=== PATIENT | female | born 1950 | race Caucasian/White ===

== ENCOUNTER 2023-06-04 15:22 | Inpatient (IN) | payer MEDICARE, OTHER, SELFPAY ==
[2023-06-04 10:24] VITALS: BP 143/81
[2023-06-04 12:07] VITALS: BMI 18.2
[2023-06-04 12:10] VITALS: BP 149/90
--- NOTE | 2023-06-04 12:33 | ED.GENMED ---
History of Present Illness
<Shannan Booker PA-C - Last Filed: 06/04/23 19:04>
General
Chief Complaint: Abdominal Symptoms
Source: patient
Exam Limitations: none
Time Seen by Provider: 06/04/23 12:13
Nursing documentation reviewed up to this point in time: agreed with
Travel History
Have you had any contact with someone who has COVID-19?: No
Do you have any symptoms of coronavirus? Fever > 100 degrees, chills, cough, shortness of breath, sore throat, loss of taste or smell, muscle aches, or headache?: No
History of Present Illness
History of Present Illness:
This is a 73-year-old female with past medical history of lipidemia, incarcerated inguinal hernia presenting to the emergency department today with abdominal pain, nausea, vomiting the past 2 days. She also has associated constipation. She states
that constipation is usually a problem for her however she states that it usually resolves with medication and recently she has not been able to pass stool. She states that during the day she has had episodes of vomiting and is not associated with
any blood. She states that she has no abdominal pain while lying supine but the pain comes on with any movement. She describes the pain as a pressure. She denies chest pain, shortness of breath, diarrhea, back pain, recent abdominal surgeries. She
has never had anything like this before. She denies recent sick contacts, recent travel.
Review of Systems
<Shannan Booker PA-C - Last Filed: 06/04/23 19:04>
Review of Systems
All Other Systems: ROS reviewed and negative except as documented in HPI and ROS
Phy Exam
<Shannan Booker PA-C - Last Filed: 06/04/23 19:04>
Physical Exam
Physical Exam:
General: Patient is well-appearing in no acute distress
Skin: Skin is warm and dry, no rashes or lesions. Capillary refill less than 2 seconds.
Cardiac: Regular rate and rhythm, no murmurs
Pulmonary: Normal respiratory effort
Abdomen: Abdomen is distended, tympanic to percussion. High-pitched bowel sounds. No palpable abdominal masses. No tenderness to palpation.
Neuro: Patient is awake and alert.
Course
<Shannan Booker PA-C - Last Filed: 06/04/23 19:04>
Orders/Labs/Results
Orders:
Orders
06/04/23 Breakfast
NPO
Allow oral meds: No
Allow clear liquids: No
06/04/23 12:41
Iohexol [Omnipaque] See Protocol PO NOW STA
CR Obstruct Series W/pa Chest Urgent
Comment:
Reason For Exam: eval for SBO
06/04/23 12:45
Complete Blood Count/With Diff Urgent
Comprehensive Metabolic Panel Urgent
Lactate Level [Lactic Acid] Urgent
Manual Differential Urgent
Urinalysis Reflex To Culture Urgent
Date Specimen was Collected: 06/04/23
Time Specimen was Collected: 12:43
Urine Microscopic Reflex Cult Urgent
Urine Culture Urgent
GIOVANNY Source: U
Specimen Description:
Date Specimen was Collected: 06/04/23
Time Specimen was Collected: 12:43
06/04/23 13:16
0.9% Sodium Chloride 1000 ml [Nss] 1,000 ml IV BOLUS
Ondansetron Injectable [Zofran] 4 mg IV NOW STA
06/04/23 13:37
NG Tube [GI tube insertion- Treatment] ONCE
06/04/23 13:46
NG Tube [GI tube insertion- Treatment] ONCE
Nursing to Place Non Medication Order As Directed
Physician Order: NG tube to low intermittent suction
Above order entered?: Yes
06/04/23 13:47
Suctioning- Treatment ONCE
06/04/23 13:52
SURGICAL CONSULT Urgent
Consulting Provider: Zia Mercado
Was physician already notified: Yes
06/04/23 14:08
CR Abdomen, Portable - 1 View Urgent
Comment:
Reason For Exam: NG tube insertion chest
06/04/23 14:51
Admit/Transfer Patient As Directed
Co-Sign Provider:
Level of Care: Inpatient admission
Assign to:: Medical/Surgical
Physician / Group: sarabjit meadows
Diagnosis: sbo
Reason for Hospitalization: sbo
Expected length of stay greater than two midnights?: Yes
ELOS- Estimated Length of Stay in days: 3
I certify the patient meets the requirements for IP care: Yes
06/04/23 14:52
Code Status As Directed
Resuscitation Status: Full Code
06/04/23 14:53
EKG [Electrocardiogram (*1)] Stat
Reason for Study: QTc Monitoring
06/04/23 16:15
0.9% Sodium Chloride 1000 ml [Nss] 1,000 ml IV 80 mls/hr
06/04/23 16:15
Activity As Directed
Activity Level: As Tolerated
Vital Signs As Directed
Frequency: Per unit guidelines
DX Deep Vein Thrombosis Video Routine
06/04/23 16:31
Lactic Acid Q6H
06/04/23 18:00
Enoxaparin Sodium [Lovenox] 40 mg SC QPM
06/04/23 19:00
Ondansetron Injectable [Zofran] 4 mg IV Q6HPRN PRN
06/05/23 06:00
Complete Blood Count/No Diff IN AM
Comprehensive Metabolic Panel IN AM
06/06/23 06:00
Complete Blood Count/No Diff IN AM
Comprehensive Metabolic Panel IN AM
06/07/23 06:00
Complete Blood Count/No Diff IN AM
Comprehensive Metabolic Panel IN AM
06/08/23 06:00
Complete Blood Count/No Diff IN AM
Comprehensive Metabolic Panel IN AM
06/09/23 06:00
Complete Blood Count/No Diff IN AM
Comprehensive Metabolic Panel IN AM
Abnormal Lab Results
06/04/23
12:45
WBC 4.5 L 10^3/uL
(4.8-10.8)
Hgb 16.7 H g/dL
(12.0-16.0)
Hct 48.4 H %
(37.0-47.0)
MCH 31.3 H pg
(27.0-31.0)
Segmented Neutrophils 19 L %
(42-75)
Band Neutrophils 27 H %
(0-3)
Monocytes (Manual) 18 H %
(2-9)
Chloride 95 L mmol/L
(98-107)
Carbon Dioxide 33 H mmol/L
(22-30)
BUN 50 H mg/dl
(7-17)
Glucose 167 H mg/dl
(70-99)
Lactic Acid 3.1 H mmol/L
(0.7-2.0)
Calcium 10.3 H mg/dl
(8.4-10.2)
AST 38 H U/L
(14-36)
ALT 56 H U/L
(0-35)
Total Protein 8.4 H g/dl
(6.3-8.2)
Urine Ketones Trace A
(Negative)
Urine Bilirubin 2+ A
(Negative)
Leukocyte Esterase Rfl Trace A
(Negative)
Urine Bacteria (Reflex) Moderate A
(Negative)
Urine Albumin (Reflex) 1+ A
(Neg - Trace)
06/04/23 12:45
06/04/23 12:45
Vital Signs
Initial and Last Documented VS:
Initial Vital Signs
Temp Pulse Resp BP Pulse Ox
98.5 F 84 16 143/81 97
06/04/23 10:24 06/04/23 10:24 06/04/23 10:24 06/04/23 10:24 06/04/23 10:24
Last Documented Vital Signs
Temp Pulse Resp BP Pulse Ox
98.1 F 84 18 145/75 98
06/04/23 16:48 06/04/23 16:48 06/04/23 16:48 06/04/23 16:48 06/04/23 16:48
<Dorian Aragon MD - Last Filed: 06/04/23 13:46>
Orders/Labs/Results
Orders:
Orders
06/04/23 Breakfast
NPO
Allow oral meds: No
Allow clear liquids: No
06/04/23 12:41
Iohexol [Omnipaque] See Protocol PO NOW STA
CR Obstruct Series W/pa Chest Urgent
Comment:
Reason For Exam: eval for SBO
06/04/23 12:45
Complete Blood Count/With Diff Urgent
Comprehensive Metabolic Panel Urgent
Lactate Level [Lactic Acid] Urgent
Manual Differential Urgent
Urinalysis Reflex To Culture Urgent
Date Specimen was Collected: 06/04/23
Time Specimen was Collected: 12:43
Urine Microscopic Reflex Cult Urgent
Urine Culture Urgent
GIOVANNY Source: U
Specimen Description:
Date Specimen was Collected: 06/04/23
Time Specimen was Collected: 12:43
06/04/23 13:16
0.9% Sodium Chloride 1000 ml [Nss] 1,000 ml IV BOLUS
Ondansetron Injectable [Zofran] 4 mg IV NOW STA
06/04/23 13:37
NG Tube [GI tube insertion- Treatment] ONCE
06/04/23 13:46
NG Tube [GI tube insertion- Treatment] ONCE
Nursing to Place Non Medication Order As Directed
Physician Order: NG tube to low intermittent suction
Above order entered?: Yes
06/04/23 13:47
Suctioning- Treatment ONCE
06/04/23 13:52
SURGICAL CONSULT Urgent
Consulting Provider: Zia Mercado
Was physician already notified: Yes
06/04/23 14:08
CR Abdomen, Portable - 1 View Urgent
Comment:
Reason For Exam: NG tube insertion chest
06/04/23 14:51
Admit/Transfer Patient As Directed
Co-Sign Provider:
Level of Care: Inpatient admission
Assign to:: Medical/Surgical
Physician / Group: sarabjit meadows
Diagnosis: sbo
Reason for Hospitalization: sbo
Expected length of stay greater than two midnights?: Yes
ELOS- Estimated Length of Stay in days: 3
I certify the patient meets the requirements for IP care: Yes
06/04/23 14:52
Code Status As Directed
Resuscitation Status: Full Code
06/04/23 14:53
EKG [Electrocardiogram (*1)] Stat
Reason for Study: QTc Monitoring
06/04/23 16:15
0.9% Sodium Chloride 1000 ml [Nss] 1,000 ml IV 80 mls/hr
06/04/23 16:15
Activity As Directed
Activity Level: As Tolerated
Vital Signs As Directed
Frequency: Per unit guidelines
DX Deep Vein Thrombosis Video Routine
06/04/23 16:31
Lactic Acid Q6H
06/04/23 18:00
Enoxaparin Sodium [Lovenox] 40 mg SC QPM
06/04/23 19:00
Ondansetron Injectable [Zofran] 4 mg IV Q6HPRN PRN
06/05/23 06:00
Complete Blood Count/No Diff IN AM
Comprehensive Metabolic Panel IN AM
06/06/23 06:00
Complete Blood Count/No Diff IN AM
Comprehensive Metabolic Panel IN AM
06/07/23 06:00
Complete Blood Count/No Diff IN AM
Comprehensive Metabolic Panel IN AM
06/08/23 06:00
Complete Blood Count/No Diff IN AM
Comprehensive Metabolic Panel IN AM
06/09/23 06:00
Complete Blood Count/No Diff IN AM
Comprehensive Metabolic Panel IN AM
Abnormal Lab Results
06/04/23
12:45
WBC 4.5 L 10^3/uL
(4.8-10.8)
Hgb 16.7 H g/dL
(12.0-16.0)
Hct 48.4 H %
(37.0-47.0)
MCH 31.3 H pg
(27.0-31.0)
Segmented Neutrophils 19 L %
(42-75)
Band Neutrophils 27 H %
(0-3)
Monocytes (Manual) 18 H %
(2-9)
Chloride 95 L mmol/L
(98-107)
Carbon Dioxide 33 H mmol/L
(22-30)
BUN 50 H mg/dl
(7-17)
Glucose 167 H mg/dl
(70-99)
Lactic Acid 3.1 H mmol/L
(0.7-2.0)
Calcium 10.3 H mg/dl
(8.4-10.2)
AST 38 H U/L
(14-36)
ALT 56 H U/L
(0-35)
Total Protein 8.4 H g/dl
(6.3-8.2)
Urine Ketones Trace A
(Negative)
Urine Bilirubin 2+ A
(Negative)
Leukocyte Esterase Rfl Trace A
(Negative)
Urine Bacteria (Reflex) Moderate A
(Negative)
Urine Albumin (Reflex) 1+ A
(Neg - Trace)
06/04/23 12:45
06/04/23 12:45
Vital Signs
Initial and Last Documented VS:
Initial Vital Signs
Temp Pulse Resp BP Pulse Ox
98.5 F 84 16 143/81 97
06/04/23 10:24 06/04/23 10:24 06/04/23 10:24 06/04/23 10:24 06/04/23 10:24
Last Documented Vital Signs
Temp Pulse Resp BP Pulse Ox
98.1 F 84 18 145/75 98
06/04/23 16:48 06/04/23 16:48 06/04/23 16:48 06/04/23 16:48 06/04/23 16:48
<Shannan Booker PA-C - Last Filed: 06/04/23 19:04>
MDM/Problems Addressed
Differential Diagnosis Includes:
Differentials include small bowel obstruction, large bowel obstruction, incarcerated hernia, perforated diverticulitis, perforated PUD, gastroenteritis, constipation
MDM/Problems Addressed:
Abdominal pain, nausea
Chronic conditions affecting care: Previous abdomnial surgery (Previous bowel resection for incarcerated inguinal hernia) and Other (hyperlipidemia)
Acute Exacerbation and/or Progression of Chronic Illness:
n/a
<Shannan Booker PA-C - Last Filed: 06/04/23 19:04>
*Pulse Oximetry
Patient hypoxic: no
*Critical Care Note
Total Time (30-74mins, 75-104mins- exclusive of procedures): Not Applicable
Data Reviewed
Review of Other/Old Records Reveals: Labs (Today, CBC unremarkable, CMP shows elevated BUN; also has elevated lactic acid of 3.1), Records (No previous records to review) and Radiology Studies (Plain radiograph of the abdomen consistent with bowel
obstruction)
Source: patient (Patient reports that she had a past surgery for bowel resection due to incarcerated inguinal)
Prescriptions/Medications Considered But Not Given:
n/a
Further Testing Considered But Not Given:
n/a
<Shannan Booker PA-C - Last Filed: 06/04/23 19:04>
Patient Management
Escalation/DeEscalation of care consider admission/obs:
This is a 73-year-old female with a past medical history of incarcerated inguinal hernia presenting to the emergency department today with abdominal pain, abdominal distention, and persistent vomiting. On exam, her abdomen is distended, she has
high-pitched bowel sounds, she is actively vomiting. Her x-ray of her abdomen revealed a bowel obstruction. We subsequently placed the NG tube for decompression and consulted general surgery. Patient was referred for admission.
ED Attending Note
<Shannan Booker PA-C - Last Filed: 06/04/23 19:04>
-
Portions of this chart may have been created with voice recognition software.� Occasional wrong word or��sound alike� substitutions may have occurred due to the inherent limitations of voice recognition software.
<Dorian Aragon MD - Last Filed: 06/04/23 13:46>
ED Attending Note
Patient seen and examined by attending physician: Yes
ED Attending Note:
HPI: 73-year-old female with a past medical history of hyperlipidemia, prior bowel resection who presents to the emergency room for evaluation of abdominal pain and distention, nausea, vomiting. Patient reports onset of symptoms 2 to 3 days ago and
have been constant and progressive. She reports significant abdominal distention. Has not been able have a bowel movement for the past 2 days. She says she is not passing gas today. She has had nausea and vomiting. She says she does have a
history of prior bowel obstructions although she says pain not as severe as with previous bowel obstruction.
ROS: Positive for abdominal distention, abdominal pain, nausea, vomiting, constipation; negative for fever, chills, chest pain, shortness of breath
Physical exam:
General: Awake, alert; no acute distress
Head: Normocephalic, atraumatic
Eyes: Conjunctiva normal, sclera anicteric
Throat: Airway intact, handling secretions
Neck: Trachea midline, supple without meningismus
Lungs: Clear to auscultation bilaterally, no wheezing, rales, rhonchi
Heart: Regular rate and rhythm, no murmurs, gallops, or rubs
Abd: Soft, distended and tympanic, mild diffuse tenderness
Neuro: No gross deficit
Extremities: Warm well-perfused
Differential diagnosis: Bowel obstruction, volvulus, perforated viscus, constipation
Medical decision makin-year-old female presents for increasing abdominal distention, pain, nausea, vomiting, constipation over the past 2 to 3 days. She has a history of prior bowel resection and prior bowel obstructions. Mildly hypertensive
otherwise normal vitals. Exam as above. Plan to place an IV check labs including CBC and CMP, lactate. Send a urinalysis. Will provide some IV fluids. Antiemetic. Will send for CT of the abdomen pelvis with p.o. and IV contrast; while waiting
for patient to drink for CT will send for obstruction series. Monitor closely reassess after the above.
Chronic conditions affecting care: Prior bowel resection�higher risk for obstruction
Acute exacerbation or progression of chronic illness: Acutely hypertensive likely related to symptoms�no indication for emergent antihypertensive treatment at present
History source: Patient, spouse
Data reviewed: N/A
Medications/testing considered: N/A
Social determinants of health: N/A
Discussion with other providers: See PA note
UPDATE:
X-ray of the abdomen reviewed by me shows signs consistent with a small bowel obstruction. Her labs were reviewed: CBC unremarkable, CMP shows elevated BUN. Her lactate is elevated at 3.1. IV fluids in progress. Will place an NG tube to
decompress stomach. She says pain is minimal nausea and vomiting is her primary complaint. Will change CT to IV contrast only rule out closed-loop obstruction as patient is not tolerating p.o. well and will plan for decompression with NG tube. PA
discussed with hospitalist for admission.
Discharge Plan
Departure
Patient Disposition: Admit
Date of Disposition: 06/04/23
Time of Disposition: 13:52
Admit to doctor: Candace
Presentation/result/management discussed w/ accepting MD/DO: Hospitalist
Discharge Problem:
Small bowel obstruction
Interventions
Interventions:
*Risk Screen - Suicide Last Done: 06/04/23 12:07
*General Assessment Last Done: 06/04/23 12:07
*Neglect/Abuse Screening Last Done: 06/04/23 12:07
ED- Fall Risk Assessment Last Done: 06/04/23 12:07
*ED COVID-19 Vaccine History Last Done: 06/04/23 10:29
*Nursing Disposition Last Done: 06/04/23 16:10
EJ-Xerwre-Ndnwnwoljh Assessment Last Done: 06/04/23 12:07
ED- Cardiac Assessment Last Done: 06/04/23 12:07
ED- Pulmonary Assessment Last Done: 06/04/23 12:07
Discharge Date and Time
Discharge Date/Time: 06/04/23 16:11
[2023-06-04] MEDS: OMNIPAQUE 50 ML PO ×2 (12:48→19:19)
[2023-06-04 13:00] VITALS: BP 139/94
[2023-06-04 13:08] LABS: Urine Albumin 1+ (Neg - Trace); Urine Bilirubin 2+ (Negative); Urine Character Clear (Clear); Urine Color Yellow; Urine Glucose Negative (Negative); Urine Ketone Trace (Negative); Urine Leukocyte Trace (Negative); Urine Nitrite Negative (Negative); Urine Occult Blood Negative (Negative); Urine Specific Gravity 1.025 (<1.030); Urine Urobilinogen 1+ (Neg - 1+)
[2023-06-04 13:15] LABS: Hematocrit 48.4 % (37.0-47.0); Hemoglobin 16.7 g/dL (12.0-16.0); Mean Corp Hgb Conc. 34.5 g/dL (33.0-37.0); Mean Corpuscular Hgb 31.3 pg (27.0-31.0); Mean Corpuscular Volume 90.8 fL (81.0-99.0); Mean Platelet Volume 9.6 fL (7.4-10.4); Platelet Count 325 10^3/uL (130-400); Red Blood Cell Count 5.33 10^6/uL (4.20-5.40); Red Cell Dist. Width 13.4 % (11.5-14.5); White Blood Cell Count 4.5 10^3/uL (4.8-10.8)
[2023-06-04] MEDS: ZOFRAN 4 MG IV ×2 (13:20→19:19)
[2023-06-04] MEDS: NSS 1000 IV ×2 (13:20→16:32)
[2023-06-04 13:26] LABS: Lactic Acid 3.1 mmol/L (0.7-2.0)
[2023-06-04 13:29] LABS: ALT (SGPT) 56 U/L (0-35); AST (SGOT) 38 U/L (14-36); Alkaline Phosphatase 69 U/L (38-126); Blood Urea Nitrogen 50 mg/dl (7-17); Calcium 10.3 mg/dl (8.4-10.2); Carbon Dioxide 33 mmol/L (22-30); Chloride 95 mmol/L (98-107); Estimated Creatinine Clearance 38 ml/min; Glucose 167 mg/dl (70-99); Potassium 4.4 mmol/L (3.5-5.1); Sodium 138 mmol/L (135-145); Total Bilirubin 0.8 mg/dl (0.2-1.3); Total Protein 8.4 g/dl (6.3-8.2); Urine Hyaline Cast >15 /LPF (0-2); Urine Squamous Cell >30 /LPF (Few); eGFR 59.49
[2023-06-04 13:30] LABS: Urine Bacteria Moderate (Negative); Urine Red Blood Cell 0-2 /HPF (0-2)
[2023-06-04 13:55] LABS: Atypical Lymphocytes 2 %; Band Neutrophils 27 % (0-3); Lymphocytes 31 % (20-51); Monocytes 18 % (2-9); Segmented Neutrophils 19 % (42-75)
[2023-06-04 13:56] LABS: Metamyelocytes 3 % (-); Normal RBC Morphology Yes; Platelets Checked Yes; Total Cells Counted 100
--- NOTE | 2023-06-04 14:09 | HPS.HSE ---
Addendum entered and electronically signed by Juan J Maria MD 06/04/23 15:38:
I saw and examined the patient.
The ENTRY LEVEL DRAFTER or PA's note was reviewed and I agree with the note.
Comment:
73 years old female who presented with abdominal pain, constipation, nausea and vomiting. She was found to have small bowel obstruction. NG tube was placed in the emergency room. Her nausea vomiting subsided. Abdominal distention also subsided.
Patient had colonoscopy done few months ago and was unremarkable
Physical Exam
-
General: Well Developed and No Apparent Distress
HEENT: Normocephalic, Atraumatic, Moist Mucous Membranes. Nasogastric tube
Respiratory: Clear to Auscultation
Cardiac: Regular Rhythm and S1/S2; Negative Murmur, Rub or Gallop
GI: Soft, mild tenderness but no guarding.
Rectal: No rectal bleeding noted.
Musculoskeletal: No Clubbing, No Cyanosis and No Edema
Skin: Negative Rash
Neuro: Awake, Alert, Oriented, AO x 3 and Nonfocal/Grossly Intact
Psych: Calm
# Small bowel obstruction, abdominal pain
Likely related to previous surgery. Will order CAT scan of the abdomen and pelvis with IV and oral contrast
N.p.o., GI prophylaxis with IV Protonix
Maintenance IV fluid
IV pain medicine for pain and discomfort
IV antiemetics
Surgery input appreciated
# Lactic acidosis, will trend lactic acid. No fever. No leukocytosis.
Will monitor.
Patient is nontoxic-appearing
# Elevated liver enzymes. Could be related to dehydration. Will monitor
#History of tobacco use
# Underweight. Consistent with patient's body habitus
Total time spent to see the patient, examine the patient on the floor, review data and lab results, discuss treatment plan with patient, ER doctor and nursing staff around 75 minutes
Original Note:
Family Physician
-
Family Physician: Tala Tijerina
Chief Complaint
-
abdominal pain associated with n/v
History of Present Illness
73-year-old female with past medical history of lipidemia, incarcerated inguinal hernia presenting to the emergency department today with abdominal pain, nausea, vomiting the past 2 days. She also has associated constipation. Patient stated gassy
and intermittent Constipation since the colonoscopy in December .she had 2 polyps removed in December. Usually her constipation gets improved with Senokot. For past 2 days, constipation did not improve with Senokot. stated Distention of the
abdomen. Denied fever, chills, chest pain, short of breath. Denied headache, dizziness, syncopal episode. Denied dysuria hematuria.
X-ray with small bowel obstruction. NG tube placed in ER admitting for further management.
Medical History
Past Medical History
Past Medical History: Reports Other
Additional Past Medical History:
Hyperlipidemia
Car serrated hernia
Past Surgical History: Reports Other
Additional Past Surgical History:
Polyps removed
Hernia surgery
Social History
Tobacco: Smoker (5 cigarettes daily)
Alcohol: Occasional
Drug: None
Personal:
Living: With Family
Family History
Family History: Not pertinent
Allergies / Home Medications
Allergies reflects when Allergies were last updated in [facility].
Home Medications with original date entered in [facility]
Allergy/Medication List:
Allergies
Allergy/AdvReac Type Severity Reaction Status Date / Time
hepatitis B virus vaccine Allergy Shortness Verified 06/04/23 10:29
of Breath
Review of Systems
-
Constitutional: Reports No Symptoms
EENT: Reports No Symptoms
Respiratory: Reports No Symptoms
Cardiac: Reports No Symptoms
Abdomen/GI: Reports Abdominal Pain, Nausea, Vomiting and Constipated
: Reports No Symptoms
Musculoskeletal: Reports No Symptoms
Skin: Reports No Symptoms
Neurological: Reports No Symptoms
Endocrine: Reports No Symptoms
Hematologic/Lymphatic: Reports No Symptoms
Psych: Reports No Symptoms
Physical Exam
Vital Signs
Vital Signs
Temp Pulse Resp BP Pulse Ox
98.5 F 77 14 149/90 94
06/04/23 10:24 06/04/23 12:15 06/04/23 12:15 06/04/23 12:10 06/04/23 12:15
Physical Exam
General: Well Developed, Well Nourished and No Apparent Distress
HEENT: NormoCephalic, Moist mucous membranes and Atraumatic
Respiratory: Clear
Cardiac: S1/S2 and Regular Rhythm; No Murmur or Rub
GI: Tender and Distended; No Organomegaly
Rectal: Deferred by Provider
Musculoskeletal: No Clubbing, No Cyanosis and No Edema
Skin: No Rash
Neuro: AO x 3 and Nonfocal/grossly intact
Psych: Calm
Laboratory Results
-
06/04/23 12:45
06/04/23 12:45
Laboratory Results
Lactic Acid 3.1 mmol/L (0.7-2.0) H 06/04/23 12:45
Total Bilirubin 0.8 mg/dl (0.2-1.3) 06/04/23 12:45
AST 38 U/L (14-36) H 06/04/23 12:45
ALT 56 U/L (0-35) H 06/04/23 12:45
Alkaline Phosphatase 69 U/L (38-126) 06/04/23 12:45
Data Reviewed
-
Lab Data: Labs Reviewed by me
Impression/Plan
-
#small bowel obstruction
-NG tube
-strict NPO
-fluids continued for hydration
-GI consulted
#elevated lactic acid from SBO
-lactic 3.1,wbc 4.5, afebrile
-ua negative
-Trend lactic
#elevated transaminase likely dehydration
-ast 38,alt 56
-normal saline continued
-trend LFT
#hld
-hold statin
#DVT prophylaxis
-Lovenox
#CODE status
-full code
[2023-06-04 14:18] VITALS: BP 147/84
--- NOTE | 2023-06-04 15:35 | CON.GS ---
Medical History
-
Chief Complaint: Abdominal pain, distension, N/V
History of Present Illness:
Patient is a 73 yo F with a PMH notable for HLD, s/p open RIGHT inguinal hernia repair with SBR in the and s/p open LEFT inguinal hernia repair years later. She presents to the emergency room with worsening abdominal pain and distention with
associated nausea and vomiting over the past 5 to 6 days. Upon further prompting Ms. Phan states that she has been having issues with crampy abdominal pain and progressive distention over the past several months. She has had intermittent
issues with constipation which she has been managing with OTC oral stool softeners. She states that her last bowel movement and flatus was approximately 2 days ago. No report of high-fiber foods or sick contacts. No fevers or chills. No bloody
or mucousy stools. Her last colonoscopy was in 12/2022 and notable for small polyps removed (no report or Pathology available).
Past Medical History
Past Medical History: Hypercholesterolemia
Past Surgical History: Hernia Repair (S/p open RIGHT inguinal hernia repair with SBR in the , S/p open LEFT inguinal hernia repair years later)
Social History
Tobacco: Non-Smoker
Alcohol: None
Drug: None
Personal:
Living: With Family
Family History
Family History: Reviewed & Noncontributory
Allergies / Home Medications
Allergy/AdvReac Type Severity Reaction Status Date / Time
hepatitis B virus vaccine Allergy Shortness Verified 06/04/23 10:29
of Breath
Medication Instructions Recorded Confirmed Type
Uunnivs-Z3-Pvdyalvtp-Zinc 1 tab PO Q48H 06/04/23 06/04/23 History
Dqhhcou-V8-Dizzapjfk-Zinc 2 tab PO Q48H 06/04/23 06/04/23 History
alendronate 70 mg tablet 70 mg PO DALY@0800 06/04/23 06/04/23 History
atorvastatin 20 mg tablet 20 mg PO QPM 06/04/23 06/04/23 History
ibuprofen 200 mg tablet (Motrin IB) 400 mg PO DAILYPRN PRN mild pain 06/04/23 06/04/23 History
sennosides 8.6 mg tablet (Senokot) 8.6 mg PO DAILY PRN constipation 06/04/23 06/04/23 History
Review of Systems
-
A 10 point review of systems was completed, and was negative except as per HPI.
Physical Exam
Vital Signs
Temp Pulse Resp BP Pulse Ox
98.5 F 75 15 147/84 96
06/04/23 10:24 06/04/23 14:30 06/04/23 14:30 06/04/23 14:18 06/04/23 14:30
06/03/23 06/04/23 06/05/23
06:59 06:59 06:59
Actual Weight 48 kg
Body Mass Index (BMI) 18.2
Lab Results
06/04/23 12:45
06/04/23 12:45
WBC 4.5 10^3/uL (4.8-10.8) L 06/04/23 12:45
Hgb 16.7 g/dL (12.0-16.0) H 06/04/23 12:45
Hct 48.4 % (37.0-47.0) H 06/04/23 12:45
Plt Count 325 10^3/uL (130-400) 06/04/23 12:45
Physical Exam
General: Well Developed, Well Nourished and No Apparent Distress
HEENT: Normocephalic and Anicteric
Respiratory: Non Labored Respirations
Cardiac: Regular Rhythm
GI: Soft, Tender (Moderate mostly central), Distended (Tympanitic), Incisions (Groin incisions well healed) and Other (Non-peritoneal (no rebound or guarding), no hernia appreciated on exam)
Musculoskeletal: No Edema
Skin: Warm and Dry
Neuro: Nonfocal/Grossly Intact
Data Reviewed
-
Radiology: Image Personally Visualized and interpreted and Report Reviewed by me
Labs: Labs Reviewed by me
Assessment / Plan
-
Patient is a 73 yo F p/w SBO; acute on chronic over the past several months
The natural history and pathophysiology of bowel obstruction was reviewed. Most likely adhesive given her prior emergent hernia repair with SBR. No recurrent hernia appreciated on exam. Less likely a malignant process. Afebrile and
hemodynamically stable. Labs notable for significantly elevated hemoglobin and mildly elevated lactate. Most likely indicative of dehydration. Recommended plan for a CT scan with oral and IV contrast. Given the degree of small bowel distention
on plain film we will plan for a period of a few hours for decompression prior to administering oral contrast. Repeat abdominal x-ray in the AM. No indication or plan for surgical intervention at this time, recommend initial trial of medical
management with NPO, IVF, and NG decompression. All questions answered.
-- NPO, IVF, NGT decompression
-- CT with PO and IV contrast, repeat X-ray in AM pending results
-- No plans for surgical intervention at this time
[2023-06-04] MEDS: NSS (PRESERVATIVE FREE) 10 ML IV (16:33)
[2023-06-04] MEDS: PROTONIX IV 40 MG IV (16:33)
[2023-06-04 16:48] VITALS: BP 145/75
[2023-06-04 16:49] VITALS: BMI 18.4
[2023-06-04 16:49] LABS: Lactic Acid 1.6 mmol/L (0.7-2.0)
[2023-06-04] MEDS: LOVENOX 40 MG SC (19:19)
[2023-06-04] MEDS: COMPAZINE 10 MG IV (20:56)
--- NOTE | 2023-06-04 22:06 | PTCARENOTE ---
Pt taken to CT after drinking the oral contrast. Pt was able to tolerate procedure.
[2023-06-04 23:34] VITALS: BP 150/80
[2023-06-05] MEDS: NSS 1000 IV ×2 (05:21→22:07)
[2023-06-05] MEDS: NSS (PRESERVATIVE FREE) 10 ML IV (07:35)
[2023-06-05] MEDS: PROTONIX IV 40 MG IV (07:35)
[2023-06-05 07:49] VITALS: BP 155/88
[2023-06-05 08:18] LABS: Hemoglobin 16.4 g/dL (12.0-16.0); Mean Corp Hgb Conc. 34.9 g/dL (33.0-37.0); Mean Corpuscular Hgb 31.4 pg (27.0-31.0); Mean Corpuscular Volume 89.9 fL (81.0-99.0); Mean Platelet Volume 9.8 fL (7.4-10.4); Platelet Count 307 10^3/uL (130-400); Red Blood Cell Count 5.23 10^6/uL (4.20-5.40); Red Cell Dist. Width 13.2 % (11.5-14.5); White Blood Cell Count 5.9 10^3/uL (4.8-10.8)
[2023-06-05 09:24] LABS: ALT (SGPT) 20 U/L (0-35); AST (SGOT) 29 U/L (14-36); Albumin 4.7 g/dl (3.5-5.0); Alkaline Phosphatase 74 U/L (38-126); Blood Urea Nitrogen 61 mg/dl (7-17); Calcium 9.4 mg/dl (8.4-10.2); Carbon Dioxide 35 mmol/L (22-30); Chloride 92 mmol/L (98-107); Estimated Creatinine Clearance 31 ml/min; Glucose 152 mg/dl (70-99); Potassium 4.1 mmol/L (3.5-5.1); Sodium 137 mmol/L (135-145); Total Bilirubin 0.8 mg/dl (0.2-1.3); Total Protein 7.8 g/dl (6.3-8.2)
--- NOTE | 2023-06-05 10:02 | W.PN.GS2 ---
Today's Communication / Plan
-
Clamp trials
Assessment / Plan
-
73F with pSBO, resolving
AFVSS, ambulating, passing liquid stool/flatus this am, about 2L into NGT since midnight; soft reducible nt RIH
Mild leukopenia resolved
Cr 1 --> 1.2
CT with diffusely dilated sb loops without clear transition point, some bowel/colon in right inguinal hernia without signs of threat or compromise, colon is decompressed
F/U KUB slightly improved dilation of sb, no significant visible contrast, possibly some in at the splenic flexure
Plan:
Initiate clamp trials --> start sips/chips for today if she does well
NPO/IVF
Ambulate
DVT ppx
PRN pain meds/antiemetics
No plans for surgical intervention at this time, will follow
Subjective Data
-
Date of Service: June 05, 2023
AFVSS, pain improved, denies nausea, with NT to suction, ambulating, passing liquid stool and flatus this am
Objective Data
-
Intake and Output
06/04/23 06/05/23 06/06/23
06:59 06:59 06:59
Intake Total 850 / 850
Output Total 1750 / 1750
Balance -900 / -900
Intake:
IV fluids (Total) 850 / 850
Output:
Gastrointestinal tube output ( 1750 / 1750
Total)
[place] Sump 1750 / 1750
Vital Signs
Temp Pulse Resp BP Pulse Ox
97.9 F 73 16 155/88 92
06/05/23 07:49 06/05/23 07:49 06/05/23 07:49 06/05/23 07:49 06/05/23 07:49
Lab Results
06/05/23 07:48
06/05/23 07:48
Calcium 9.4 mg/dl (8.4-10.2) 06/05/23 07:48
Total Bilirubin 0.8 mg/dl (0.2-1.3) 06/05/23 07:48
AST 29 U/L (14-36) 06/05/23 07:48
ALT 20 U/L (0-35) 06/05/23 07:48
Alkaline Phosphatase 74 U/L (38-126) 06/05/23 07:48
Total Protein 7.8 g/dl (6.3-8.2) 06/05/23 07:48
Albumin 4.7 g/dl (3.5-5.0) 06/05/23 07:48
Physical Exam
-
Gen: NAD
Abd: soft, moderate distention, nt
Right groin: soft reducible nt inguinal hernia
--- NOTE | 2023-06-05 10:16 | W.PN.HOSP.TC ---
Today's Communication/Plan
-
.
Assessment / Plan
Assessment / Plan
Physical Exam
General: Well Developed and No Apparent Distress
HEENT: Normocephalic, Atraumatic, Moist Mucous Membranes.� Nasogastric tube
Respiratory: Clear to Auscultation
Cardiac: Regular Rhythm and S1/S2; Negative Murmur, Rub or Gallop
GI: Soft, mild tenderness but no guarding.
Rectal: No rectal bleeding noted.
Musculoskeletal: No Clubbing, No Cyanosis and No Edema
Skin: Negative Rash
Neuro: Awake, Alert, Oriented, AO x 3 and Nonfocal/Grossly Intact
Psych: Calm
# Small bowel obstruction, abdominal pain
Likely related to previous surgery/ adhesion
Seems to do better with passing gas and liquid stool
CAT scan of the abdomen and pelvis with IV and oral contrast showed clear transition point
N.p.o., GI prophylaxis with IV Protonix
Maintenance IV fluid, clamping trial of NG today
IV pain medicine for pain and discomfort
IV antiemetics
Surgery input appreciated
# Lactic acidosis, resolved. � No fever.� No leukocytosis.
Patient is nontoxic-appearing
# Acute kidney injury
likely pre-renal although pt received iV dye yesterday
c/w IVF
Monitor for retention
# Elevated liver enzymes.� Resolved. Likely related to dehydration.�
#History of tobacco use
# Underweight.� Consistent with patient's body habitus
Total time spent to see the patient, examine the patient on the floor, review data and lab results, discuss treatment plan with patient, and nursing staff around 55 minutes
Anticipated Discharge: 24 - 48 hours
Subjective/Interval History
-
Date of Service: June 05, 2023
Passing gas
less abd pain
no nausea
Objective Data
-
Labs:
Laboratory Results
06/05/23
07:48
WBC 5.9
Hgb 16.4 H
Hct 47.0
Plt Count 307
Sodium 137
Potassium 4.1
Chloride 92 L
Carbon Dioxide 35 H
BUN 61 H
Creatinine 1.2 H
Glucose 152 H
Calcium 9.4
Total Bilirubin 0.8
AST 29
ALT 20
Alkaline Phosphatase 74
Vital Signs:
Vital Signs
Temp Pulse Resp BP Pulse Ox
97.9 F 73 16 155/88 92
06/05/23 07:49 06/05/23 07:49 06/05/23 07:49 06/05/23 07:49 06/05/23 07:49
I&O
06/04/23 06/05/23 06/06/23
06:59 06:59 06:59
Intake Total 850 / 850
Output Total 1750 / 1750
Balance -900 / -900
[2023-06-05 15:00] VITALS: BP 143/80
--- NOTE | 2023-06-05 16:16 | PTCARENOTE ---
Resumed low int suction at 1500. 75mls drained, pt not complaining of nausea. [address] dc'd. Pt NPO with sips/chips.
--- NOTE | 2023-06-05 17:27 | CM ---
CM following re: d/c planning
Chart reviewed
CM met with the patient at bedside; IA completed
Pt states she and her spouse [place] [facility] with [facility]
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
Pt has no previous hx of VN/SNF however does have a r/w & pair of crutches for use as needed
Pt does have prescription coverage and rx's are filled at [facility] on [facility]
Pt PCP-Tala Tijerina
No needs are anticipated once stable for d/c
CM will continue to monitor patient and assist with any needs at d/c as indicated
PLAN; d/c home no needs anticipated
[2023-06-05] MEDS: LOVENOX 40 MG SC (18:05)
[2023-06-05 23:00] VITALS: BP 141/74
[2023-06-06 03:00] VITALS: BP 148/73
[2023-06-06 06:19] VITALS: BMI 18.0
[2023-06-06 06:23] LABS: Hematocrit 44.9 % (37.0-47.0); Hemoglobin 15.7 g/dL (12.0-16.0); Mean Corpuscular Hgb 31.5 pg (27.0-31.0); Mean Platelet Volume 9.8 fL (7.4-10.4); Platelet Count 274 10^3/uL (130-400); Red Blood Cell Count 4.99 10^6/uL (4.20-5.40); Red Cell Dist. Width 13.2 % (11.5-14.5); White Blood Cell Count 5.3 10^3/uL (4.8-10.8)
[2023-06-06] MEDS: ZOFRAN 4 MG IV (06:29)
[2023-06-06 06:49] LABS: ALT (SGPT) 17 U/L (0-35); AST (SGOT) 27 U/L (14-36); Albumin 4.3 g/dl (3.5-5.0); Alkaline Phosphatase 66 U/L (38-126); Blood Urea Nitrogen 55 mg/dl (7-17); Calcium 8.3 mg/dl (8.4-10.2); Carbon Dioxide 35 mmol/L (22-30); Chloride 96 mmol/L (98-107); Estimated Creatinine Clearance 46 ml/min; Glucose 119 mg/dl (70-99); Potassium 3.6 mmol/L (3.5-5.1); Sodium 138 mmol/L (135-145); Total Bilirubin 0.8 mg/dl (0.2-1.3); Total Protein 7.1 g/dl (6.3-8.2); eGFR > 60.00
[2023-06-06 07:35] VITALS: BP 150/83
[2023-06-06] MEDS: NSS 1000 IV ×2 (09:02→18:21)
[2023-06-06] MEDS: PROTONIX IV 40 MG IV (09:04)
[2023-06-06] MEDS: NSS (PRESERVATIVE FREE) 10 ML IV (09:05)
--- NOTE | 2023-06-06 09:21 | W.PN.HOSP.TC ---
Today's Communication/Plan
-
.
Assessment / Plan
Assessment / Plan
Physical Exam
General: Well Developed and No Apparent Distress
HEENT: Normocephalic, Atraumatic, Moist Mucous Membranes.� Nasogastric tube
Respiratory: Clear to Auscultation
Cardiac: Regular Rhythm and S1/S2; Negative Murmur, Rub or Gallop
GI: Soft, mild tenderness but no guarding.
Rectal: No rectal bleeding noted.
Musculoskeletal: No Clubbing, No Cyanosis and No Edema
Skin: Negative Rash
Neuro: Awake, Alert, Oriented, AO x 3 and Nonfocal/Grossly Intact
Psych: Calm
# Small bowel obstruction, abdominal pain
Likely related to previous surgery/ adhesion
NG was removed yesterday but she seems to have nausea. Abd is distended, abd tenderness. Keep strict NG
will d/w surgery
CAT scan of the abdomen and pelvis with IV and oral contrast showed clear transition point
IV pain medicine for pain and discomfort
IV antiemetics
Surgery input appreciated
# Lactic acidosis, resolved. � No fever.� No leukocytosis.
Patient is nontoxic-appearing
# Acute kidney injury
Creatinine is down to 0.8
KERRIE was pre-renal.
c/w IVF
Monitor for retention
# Elevated liver enzymes.� Resolved. Likely related to dehydration.�
#History of tobacco use
# Underweight.� Consistent with patient's body habitus
Total time spent to see the patient, examine the patient on the floor, review data and lab results, discuss treatment plan with patient, and nursing staff around 57 minutes
Anticipated Discharge: > 48 hours
Subjective/Interval History
-
Date of Service: June 06, 2023
Nausea with abd distension
+ abd discomfort
Objective Data
-
Labs:
Laboratory Results
06/06/23
05:58
WBC 5.3
Hgb 15.7
Hct 44.9
Plt Count 274
Sodium 138
Potassium 3.6
Chloride 96 L
Carbon Dioxide 35 H
BUN 55 H
Creatinine 0.8
Glucose 119 H
Calcium 8.3 L
Total Bilirubin 0.8
AST 27
ALT 17
Alkaline Phosphatase 66
Vital Signs:
Vital Signs
Temp Pulse Resp BP Pulse Ox
98.2 F 82 18 150/83 96
06/06/23 07:35 06/06/23 07:35 06/06/23 07:35 06/06/23 07:35 06/06/23 07:35
I&O
06/05/23 06/06/23 06/07/23
06:59 06:59 06:59
Intake Total 850 / 850
Output Total 1750 / 1750
Balance -900 / -900
--- NOTE | 2023-06-06 09:26 | W.PN.GS2 ---
Addendum entered and electronically signed by Eran Beasley MD 06/06/23 11:07:
persistent dilated SB loops highly suggestive of persistent high grade obstruction
requested nursing to replace NGT for decompression
Original Note:
Today's Communication / Plan
-
`
Assessment / Plan
-
Assessment: 73F with SBO
AFVSS but return of obstructive symptoms rather promptly after NGT removal. no flatus or BMs
Plan: check abdominal xray - if persistent SB/gastric distention then will need to replace NGT for decompression
NPO, IVF hydration, supportive care
if no clinical improvement over next 24hrs probable OR
Subjective Data
-
Date of Service: June 06, 2023
pt seen and examined
feeling worse again after NGT removed
overnight distention returned and mild nausea, no appetite
no flatus/no BM
Objective Data
-
Intake and Output
06/05/23 06/06/23 06/07/23
06:59 06:59 06:59
Intake Total 850 / 850
Output Total 1750 / 1750
Balance -900 / -900
Intake:
IV fluids (Total) 850 / 850
Output:
Gastrointestinal tube output ( 1750 / 1750
Total)
[place] Sump 1750 / 1750
Other:
Number of approximated MODERATE 3
amounts of urine
Vital Signs
Temp Pulse Resp BP Pulse Ox
98.2 F 82 18 150/83 96
06/06/23 07:35 06/06/23 07:35 06/06/23 07:35 06/06/23 07:35 06/06/23 07:35
Lab Results
06/06/23 05:58
06/06/23 05:58
Calcium 8.3 mg/dl (8.4-10.2) L 06/06/23 05:58
Total Bilirubin 0.8 mg/dl (0.2-1.3) 06/06/23 05:58
AST 27 U/L (14-36) 06/06/23 05:58
ALT 17 U/L (0-35) 06/06/23 05:58
Alkaline Phosphatase 66 U/L (38-126) 06/06/23 05:58
Total Protein 7.1 g/dl (6.3-8.2) 06/06/23 05:58
Albumin 4.3 g/dl (3.5-5.0) 06/06/23 05:58
Physical Exam
-
NAD AAOx3
ABD: distended, tympanitic, nontender
--- NOTE | 2023-06-06 12:18 | PN.CDI ---
Addendum entered and electronically signed by Juan J Maria MD 06/06/23 13:50:
Assessment shows KERRIE
please text me to clarify
Original Note:
CDI
- -
CDI:
Physician Documentation Request
Admit Date: 06/04/23 15:22
Dear Doctor,
Please review the following and provide your response in the progress notes.
Clinical Indicators:
PN, 2/
# Acute kidney injury
#Creatinine is down to 0.8
#KERRIE was pre-renal.
#c/w IVF
Laboratory Tests
06/04/23 06/05/23 06/06/23
12:45 07:48 05:58
Creatinine 1.0 1.2 H 0.8
Based on the above information and the clinical indicators in the record, please clarify in the Progress Notes which of the following most accurately represents the patient's renal status:
Acute kidney injury with no underlying CKD
KERRIE is likely, suspected, probable diagnosis
KERRIE is ruled out
Other
Criteria for KERRIE*
1 Increase in serum creatinine by > or = to 0.3 mg/dL (> or = to 26.5 micromol/L) within 48 hours, OR
2 Increase in serum creatinine to > or = to 1.5 times baseline, which is known or presumed to have occurred within 7 days, OR
3 Urine volume < 0.5 nL/kg/hour for six hours
Use of terms such as suspected, likely, concern for, or probable (associated with a specific diagnosis that is being evaluated, monitored, or treated as if it exists) are acceptable and can be coded in the inpatient setting, when documented at the
time of discharge.
Thank you,
Belinda Gonsalez RN BSN CCDS
CDI Specialist
please contact via tiger text
Please use your independent medical judgment in providing your response.
*Source: Kidney Disease: Improving Global Outcomes (KDIGO) 2012
[2023-06-06 15:47] VITALS: BP 142/67
--- NOTE | 2023-06-06 16:57 | W.PN.SURGUPD ---
Surgical Update
Surgical Update
Patient seen in follow-up this afternoon/evening.
Appreciate nursing assistance with NG tube placement earlier.
Patient feeling better. Abdominal distention has again begun to subside. No abdominal pain or discomfort.
NG tube in place with 1500 mL or even more of feculent fluid in canister
Abdominal examination much softer, nontender, no rebound or guarding.
Advised patient of anticipated need for surgical intervention tomorrow
She has been added onto the OR schedule, 06/07/2023, for a persistent high-grade small bowel obstruction
Diagnostic laparoscopy, possible laparotomy, lysis of adhesions, possible bowel resection was reviewed in detail with the patient. Based on imaging and prior history point of obstruction appears to be twist in the immediate vicinity of the prior
small bowel resection when she had secondary to a strangulated inguinal hernia. We discussed alternative treatment options, benefits and potential risks of the operative procedure including but not limited to bleeding, infectious or wound related
complications, iatrogenic injury to surrounding viscera, anastomotic related complications. We discussed typical postoperative recovery hospital care while awaiting postoperative GI recovery/return of GI function after surgery.
Any of the patient's concerns or questions were fully addressed.
Continue NG tube decompression
Continue IV fluid hydration
Repeat labs in a.m.
--- NOTE | 2023-06-06 17:19 | PTCARENOTE ---
Received patient this am AAOx3. Pt with intermittent nausea and abdominal tenderness. Abdominal assessment-distended, firm and round. No bowel sounds. Pt unable to have a bowel movement. Dr. Beasley saw patient. Abdominal Xray ordered. NGT tube
placed at 1230 pm as ordered. Brown drainage. Pt made comfortable. Cont to assess patient status.
[2023-06-06] MEDS: LOVENOX 40 MG SC (18:20)
[2023-06-06 22:51] VITALS: BP 148/73
[2023-06-07] VITALS (14 sets, daily range): BP systolic 129–153; BP diastolic 70–84; BMI 18.0
[2023-06-07] MEDS: NSS 1000 IV ×3 (03:37→17:43)
[2023-06-07 08:15] LABS: Hemoglobin 14.8 g/dL (12.0-16.0); Mean Corp Hgb Conc. 34.4 g/dL (33.0-37.0); Mean Corpuscular Hgb 31.6 pg (27.0-31.0); Mean Corpuscular Volume 91.7 fL (81.0-99.0); Platelet Count 267 10^3/uL (130-400); Red Blood Cell Count 4.69 10^6/uL (4.20-5.40); Red Cell Dist. Width 13.1 % (11.5-14.5); White Blood Cell Count 4.3 10^3/uL (4.8-10.8)
[2023-06-07 08:42] LABS: ALT (SGPT) 14 U/L (0-35); AST (SGOT) 22 U/L (14-36); Albumin 3.7 g/dl (3.5-5.0); Alkaline Phosphatase 55 U/L (38-126); Blood Urea Nitrogen 50 mg/dl (7-17); Calcium 8.3 mg/dl (8.4-10.2); Carbon Dioxide 28 mmol/L (22-30); Chloride 102 mmol/L (98-107); Estimated Creatinine Clearance 52 ml/min; Glucose 104 mg/dl (70-99); Potassium 3.3 mmol/L (3.5-5.1); Sodium 144 mmol/L (135-145); Total Bilirubin 0.7 mg/dl (0.2-1.3); Total Protein 6.1 g/dl (6.3-8.2); eGFR > 60.00
[2023-06-07] MEDS: NSS (PRESERVATIVE FREE) 10 ML IV (09:16)
[2023-06-07] MEDS: PROTONIX IV 40 MG IV (09:16)
--- NOTE | 2023-06-07 09:36 | W.PN.HOSP.TC ---
Today's Communication/Plan
-
.
Assessment / Plan
Assessment / Plan
Physical Exam
General: Well Developed and No Apparent Distress
HEENT: Normocephalic, Atraumatic, Moist Mucous Membranes.� Nasogastric tube
Respiratory: Clear to Auscultation
Cardiac: Regular Rhythm and S1/S2; Negative Murmur, Rub or Gallop
GI: Soft, mild tenderness but no guarding.
Rectal: No rectal bleeding noted.
Musculoskeletal: No Clubbing, No Cyanosis and No Edema
Skin: Negative Rash
Neuro: Awake, Alert, Oriented, AO x 3 and Nonfocal/Grossly Intact
Psych: Calm
# Small bowel obstruction, abdominal pain
She feels better after placing NG back on 06/06. Likely to OR today
SBO thought to be related to previous surgery/ adhesion
c/w supportive care
CAT scan of the abdomen and pelvis with IV and oral contrast showed clear transition point
IV pain medicine for pain and discomfort
IV antiemetics
Surgery input appreciated
# Hypokalemia
replace with IV KCl
# Lactic acidosis, resolved. � No fever.� No leukocytosis.
Patient is nontoxic-appearing
# Acute kidney injury due to pre-renal etiology. Creatinine down to 0.7
Creatinine is down to 0.8
KERRIE was pre-renal.
c/w IVF
Monitor for retention
# Elevated liver enzymes.� Resolved. Likely related to dehydration.�
#History of tobacco use
# Underweight.� Consistent with patient's body habitus
Total time spent to see the patient, examine the patient on the floor, review data and lab results, discuss treatment plan with patient, and nursing staff around 57 minutes
Anticipated Discharge: > 48 hours
Subjective/Interval History
-
Date of Service: June 07, 2023
She feels better after NG placement
No chest pain
No sob
No fevers
Objective Data
-
Labs:
Laboratory Results
06/07/23
07:15
WBC 4.3 L
Hgb 14.8
Hct 43.0
Plt Count 267
Sodium 144
Potassium 3.3 L
Chloride 102
Carbon Dioxide 28
BUN 50 H
Creatinine 0.7
Glucose 104 H
Calcium 8.3 L
Total Bilirubin 0.7
AST 22
ALT 14
Alkaline Phosphatase 55
Vital Signs:
Vital Signs
Temp Pulse Resp BP Pulse Ox
97.7 F 74 16 147/79 97
06/07/23 07:41 06/07/23 07:41 06/07/23 07:41 06/07/23 07:41 06/07/23 07:41
I&O
06/06/23 06/07/23 06/08/23
06:59 06:59 06:59
Intake Total 1330 / 1330
Output Total 2300 / 2300
Balance -970 / -970
[2023-06-07] MEDS: KCL 270 MEQ IV (10:15)
--- NOTE | 2023-06-07 11:48 | W.PN.SURGUPD ---
Surgical Update
Surgical Update
Patient seen in follow-up. Family members at bedside.
Improving with NG tube decompression but still feels distended/bloated compared to baseline
Not passing much flatus but had a moderate/small semiformed/loose bowel movement this morning. NG canister still remains feculent and was over 1200 mL and output overnight.
Advised patient and her family members I suspect she still has a high-grade partial small bowel obstruction.
Given some signs of GI recovery we discussed treatment options including continue with proceeding with diagnostic laparoscopy, lysis of adhesions, possible bowel resection possible laparotomy pending operative findings or doing further radiographic
studies with a small bowel follow-through contrast study.
Given that we have had to reinsert the NG tube yesterday I suspect that small bowel series would still show a fairly high-grade partial small bowel obstruction.
After discussions of treatment options patient wishes to continue with plan for surgical intervention as we had already scheduled for today.
[2023-06-07] MEDS: NSS IV (11:54)
--- NOTE | 2023-06-07 13:23 | W.SUR.PREOP ---
Pre-Operative Surgical Note
-
I have examined this patient prior to the performance of the scheduled procedure.
The patient's condition is unchanged from the time of the current History and
Physical and the patient is able to undergo the scheduled procedure.
[2023-06-07] MEDS: INVANZ 1000 MG IM (14:30)
--- NOTE | 2023-06-07 16:27 | W.IMMPOSTOP ---
Addendum entered and electronically signed by Eran Beasley MD 06/07/23 16:53:
#[id number]
Original Note:
Surgical Immed Post Op Note
-
Primary Surgeon: Ramos
Assisting Surgeon: Armani JAMES
Pre-op Diagnosis: SBO
Post-op Diagnosis: high grade pSBO
Procedure Performed: Laparoscopic converted to open lysis of adhesions/enterolysis, repair of enterotomy
Anesthesia Type: GETA + 0.25% Marcaine
Specimen / Cultures: none
Estimated Blood Loss: 12mL
Complications: none immediate
Operative Findings: adhesions to lower midline abdominal wall and to prior small bowel anastomosis. lap lysis of abd wall SB adhesions -> conversion to lower midline laparotomy for enterolysis around SB anastomosis. small enterotomy in upstream
SB d/t severe dilation/thinning of wall d/t obstruction at laparoscopic grasper site. closed primarily with 2 layer closure. NGT position confirmed.
Plan: routine post op care, NGT until signs of GI recovery
updated post op in waiting area
--- NOTE | 2023-06-07 17:37 | PTCARENOTE ---
1g Ertapenem received intra OPat 1430 by anesthesia
--- NOTE | 2023-06-07 18:18 | PTCARENOTE ---
Patient arrived to 2S in bed. Full assessment completed. Abdominal incisions C/D/I glued and open to air. NG tube to low intermittent suction. Hinojosa catheter clean and intact, draining yellow urine. IV fluids initiated. Bed locked and in lowest
position, safety maintained. Oriented to room and call cote, spouse at bed side.
[2023-06-07] MEDS: LOVENOX 40 MG SC (18:33)
[2023-06-07] MEDS: DILAUDID 0.5 MG IV (19:41)
[2023-06-07] MEDS: OFIRMEV 100 IV (23:21)
[2023-06-08 02:21] VITALS: BMI 18.0
[2023-06-08] MEDS: NSS 1000 IV (02:35)
[2023-06-08 03:30] VITALS: BP 153/82
[2023-06-08] MEDS: OFIRMEV 100 IV ×2 (06:03→19:30)
[2023-06-08 06:07] LABS: Hemoglobin 15.9 g/dL (12.0-16.0); Mean Corp Hgb Conc. 33.1 g/dL (33.0-37.0); Mean Corpuscular Hgb 31.5 pg (27.0-31.0); Mean Corpuscular Volume 95.2 fL (81.0-99.0); Mean Platelet Volume 9.9 fL (7.4-10.4); Platelet Count 250 10^3/uL (130-400); Red Blood Cell Count 5.04 10^6/uL (4.20-5.40); Red Cell Dist. Width 13.2 % (11.5-14.5); White Blood Cell Count 17.7 10^3/uL (4.8-10.8)
[2023-06-08 06:43] LABS: ALT (SGPT) 13 U/L (0-35); AST (SGOT) 26 U/L (14-36); Albumin 2.7 g/dl (3.5-5.0); Alkaline Phosphatase 51 U/L (38-126); Blood Urea Nitrogen 38 mg/dl (7-17); Calcium 7.3 mg/dl (8.4-10.2); Carbon Dioxide 23 mmol/L (22-30); Chloride 110 mmol/L (98-107); Estimated Creatinine Clearance 46 ml/min; Glucose 82 mg/dl (70-99); Potassium 3.3 mmol/L (3.5-5.1); Sodium 146 mmol/L (135-145); Total Bilirubin 0.6 mg/dl (0.2-1.3); eGFR > 60.00
[2023-06-08 07:20] VITALS: BP 124/67
[2023-06-08] MEDS: D5/0.45%NSS with KCL 40 MEQ 1000 IV ×2 (08:45→19:29)
[2023-06-08] MEDS: PROTONIX IV 40 MG IV (08:48)
[2023-06-08] MEDS: NSS (PRESERVATIVE FREE) 10 ML IV (08:48)
[2023-06-08 12:01] VITALS: BP 125/74
--- NOTE | 2023-06-08 12:05 | W.PN.GS2 ---
Addendum entered and electronically signed by Abraham Evangelista MD 06/08/23 12:18:
I saw and examined the patient.
The Utility Aide's note was reviewed and I agree with the note.
Comment: Doing well POD1. No bowel function yet. Denies n/v with NGT to suction. Will cont NPO/IVF/NGT for now pending ROBF.
Original Note:
Today's Communication / Plan
-
Continue NPO with NGT to LIWS
Assessment / Plan
-
Assessment: 73F with high grade SBO who is now POD #1 Ex lap converted to open for JENNIFER/enterolysis and repair of enterotomy
AFVSS
Leukocytosis noted post op, likely reactive
Electrolyte abnormalities noted
Awaiting bowel function, NGT in place
Plan:
NPO with NGT until ROBF
Analgesics with Ofirmev/Dilaudid, antiemetics prn
IVF while NPO
IV abx x3 days post op
Trend labs/vitals
Encourage activity/OOB
Lovenox for VTE ppx
Hospitalist following with us for medical management
Subjective Data
-
Date of Service: June 08, 2023
Patient seen and examined at bedside with Dr. Evangelista. Family present and questions addressed. No passage of flatus or return of appetite. Denies n/v. Pain well managed
Objective Data
-
Intake and Output
06/07/23 06/08/23 06/09/23
06:59 06:59 06:59
Intake Total 1330 / 1330 2024
Output Total 2300 / 2300 805 / 805
Balance -970 / -970 1220 / 1220
Intake:
Oral fluids 240 / 240 60 / 60
IV fluids (Total) 1000 / 1000 1675 / 1675
Normosol 175 / 175
IV piggybacks 200 / 200
Amount instilled into GI Tube (
Total)
[place] Sump
Output:
Gastrointestinal tube output ( 2300 / 2300 255 / 255
Total)
[place] Sump 2300 / 2300 255 / 255
Urine, Hinojosa 550 / 550
Other:
Number of approximated MODERATE 4
amounts of urine
Vital Signs
Temp Pulse Resp BP Pulse Ox
97.8 F 82 16 125/74 96
06/08/23 12:01 06/08/23 12:01 06/08/23 12:01 06/08/23 12:01 06/08/23 12:01
Lab Results
06/08/23 05:41
06/08/23 05:41
Calcium 7.3 mg/dl (8.4-10.2) L 06/08/23 05:41
Total Bilirubin 0.6 mg/dl (0.2-1.3) 06/08/23 05:41
AST 26 U/L (14-36) 06/08/23 05:41
ALT 13 U/L (0-35) 06/08/23 05:41
Alkaline Phosphatase 51 U/L (38-126) 06/08/23 05:41
Total Protein 5.0 g/dl (6.3-8.2) L 06/08/23 05:41
Albumin 2.7 g/dl (3.5-5.0) L 06/08/23 05:41
Physical Exam
-
NAD AAOx3
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
: Hinojosa with light asuncion urine
[2023-06-08] MEDS: INVANZ 60 MG IV (13:13)
--- NOTE | 2023-06-08 14:40 | W.PN.HOSP.TC ---
Today's Communication/Plan
-
.
Assessment / Plan
Assessment / Plan
Physical Exam
General: Well Developed and No Apparent Distress
HEENT: Normocephalic, Atraumatic, Moist Mucous Membranes.� Nasogastric tube
Respiratory: Clear to Auscultation
Cardiac: Regular Rhythm and S1/S2; Negative Murmur, Rub or Gallop
GI: Soft, clean sutures, no BS.
Rectal: No rectal bleeding noted.
Musculoskeletal: No Clubbing, No Cyanosis and No Edema
Skin: Negative Rash
Neuro: Awake, Alert, Oriented, AO x 3 and Nonfocal/Grossly Intact
Psych: Calm
# High grade small bowel obstruction, abdominal pain s/p Laparoscopic converted to open lysis of adhesions/enterolysis, repair of enterotomy by Dr. Beasley on 06/07
Less abd pain
Clean sutures
Not passing gas yet
c/w NG
c/w supportive care
IV pain medicine for pain and discomfort
IV antiemetics
Surgery input appreciated
# Hypokalemia
replace with IV KCl in IVF
# Lactic acidosis, resolved. � No fever.� No leukocytosis.
Patient is nontoxic-appearing
# Hypernatremia
c/w IVF
# Acute kidney injury due to pre-renal etiology. Creatinine down to 0.7
Creatinine is down to 0.8
KERRIE was pre-renal.
c/w IVF
Monitor for retention
# Elevated liver enzymes.� Resolved. Likely related to dehydration.�
#History of tobacco use
# Underweight.� Consistent with patient's body habitus
Total time spent to see the patient, examine the patient on the floor, review data and lab results, discuss treatment plan with patient, and nursing staff around 57 minutes
Anticipated Discharge: > 48 hours
Subjective/Interval History
-
Date of Service: June 08, 2023
Less abd pain
Not passing gas
No fevers
no chest pain
Objective Data
-
Labs:
Laboratory Results
06/08/23
05:41
WBC 17.7 H
Hgb 15.9
Hct 48.0 H
Plt Count 250
Sodium 146 H
Potassium 3.3 L
Chloride 110 H
Carbon Dioxide 23
BUN 38 H
Creatinine 0.8
Glucose 82
Calcium 7.3 L
Total Bilirubin 0.6
AST 26
ALT 13
Alkaline Phosphatase 51
Vital Signs:
Vital Signs
Temp Pulse Resp BP Pulse Ox
97.8 F 82 16 125/74 96
06/08/23 12:01 06/08/23 12:01 06/08/23 12:01 06/08/23 12:01 06/08/23 12:01
I&O
06/07/23 06/08/23 06/09/23
06:59 06:59 06:59
Intake Total 1330 / 1330 2024
Output Total 2300 / 2300 805 / 805
Balance -970 / -970 1220 / 1220
[2023-06-08 15:52] VITALS: BP 143/77
[2023-06-08] MEDS: LOVENOX 40 MG SC (17:14)
[2023-06-08 23:00] VITALS: BP 129/74
[2023-06-09 06:27] LABS: Hemoglobin 14.8 g/dL (12.0-16.0); Mean Corp Hgb Conc. 32.9 g/dL (33.0-37.0); Mean Corpuscular Hgb 31.2 pg (27.0-31.0); Mean Corpuscular Volume 94.7 fL (81.0-99.0); Mean Platelet Volume 10.3 fL (7.4-10.4); Platelet Count 226 10^3/uL (130-400); Red Blood Cell Count 4.75 10^6/uL (4.20-5.40); Red Cell Dist. Width 13.4 % (11.5-14.5); White Blood Cell Count 14.1 10^3/uL (4.8-10.8)
[2023-06-09 06:43] LABS: ALT (SGPT) 15 U/L (0-35); AST (SGOT) 26 U/L (14-36); Albumin 2.6 g/dl (3.5-5.0); Alkaline Phosphatase 75 U/L (38-126); Blood Urea Nitrogen 34 mg/dl (7-17); Calcium 7.5 mg/dl (8.4-10.2); Carbon Dioxide 29 mmol/L (22-30); Chloride 114 mmol/L (98-107); Estimated Creatinine Clearance 61 ml/min; Glucose 166 mg/dl (70-99); Potassium 3.9 mmol/L (3.5-5.1); Sodium 144 mmol/L (135-145); Total Bilirubin 0.5 mg/dl (0.2-1.3); Total Protein 4.9 g/dl (6.3-8.2); eGFR > 60.00
[2023-06-09 07:17] VITALS: BP 122/76
--- NOTE | 2023-06-09 08:17 | W.PN.HOSP.TC ---
Today's Communication/Plan
-
.
Assessment / Plan
Assessment / Plan
Physical Exam
General: Well Developed and No Apparent Distress
HEENT: Normocephalic, Atraumatic, Moist Mucous Membranes.� Nasogastric tube
Respiratory: Clear to Auscultation
Cardiac: Regular Rhythm and S1/S2; Negative Murmur, Rub or Gallop
GI: Soft, clean sutures, no BS.
Rectal: No rectal bleeding noted.
Musculoskeletal: No Clubbing, No Cyanosis and No Edema
Skin: Negative Rash
Neuro: Awake, Alert, Oriented, AO x 3 and Nonfocal/Grossly Intact
Psych: Calm
# High grade small bowel obstruction, abdominal pain s/p Laparoscopic converted to open lysis of adhesions/enterolysis, repair of enterotomy by Dr. Beasley on 06/07
Less abd pain
Clean sutures
WBC is coming down
Afebrile
No tachycardia
Empiric prophylactic IV Ertapenem due to small enterotomy seen during surgery.
Not passing gas yet. No BS on exam.
c/w NG, still significant output.
c/w supportive care
IV pain medicine for pain and discomfort
IV antiemetics
Surgery input appreciated
# Hypokalemia
K is 3.9
replaced with IV KCl in IVF
# Lactic acidosis, resolved. � No fever.� No leukocytosis.
Patient is nontoxic-appearing
# Hypernatremia, resolved.
c/w IVF
# Acute kidney injury due to pre-renal etiology. Creatinine down to 0.7
Creatinine is down to 0.8
KERRIE was pre-renal.
c/w IVF
Monitor for retention
# Elevated liver enzymes.� Resolved. Likely related to dehydration.�
#History of tobacco use
# Underweight.� Consistent with patient's body habitus
Total time spent to see the patient, examine the patient on the floor, review data and lab results, discuss treatment plan with patient, and nursing staff around 55 minutes
Anticipated Discharge: > 48 hours
Subjective/Interval History
-
Date of Service: June 09, 2023
She is doing well, less abd pain
NG still putting out
Objective Data
-
Labs:
Laboratory Results
06/09/23
05:27
WBC 14.1 H
Hgb 14.8
Hct 45.0
Plt Count 226
Sodium 144
Potassium 3.9
Chloride 114 H
Carbon Dioxide 29
BUN 34 H
Creatinine 0.6
Glucose 166 H
Calcium 7.5 L
Total Bilirubin 0.5
AST 26
ALT 15
Alkaline Phosphatase 75
Vital Signs:
Vital Signs
Temp Pulse Resp BP Pulse Ox
97.7 F 76 16 129/74 97
06/08/23 23:00 06/08/23 23:00 06/08/23 23:00 06/08/23 23:00 06/08/23 23:00
I&O
06/08/23 06/09/23 06/10/23
06:59 06:59 06:59
Intake Total 2024 2350 / 2350
Output Total 805 / 805 1235 / 1235
Balance 1220 / 1220 1115 / 1115
[2023-06-09] MEDS: PROTONIX IV 40 MG IV (08:55)
[2023-06-09] MEDS: NSS (PRESERVATIVE FREE) 10 ML IV (08:55)
[2023-06-09] MEDS: D5/0.45%NSS with KCL 40 MEQ 1000 IV ×2 (08:55→20:40)
[2023-06-09] MEDS: OFIRMEV 100 IV (09:20)
--- NOTE | 2023-06-09 12:16 | W.PN.GS2 ---
Addendum entered and electronically signed by Abraham Evangelista MD 06/09/23 12:27:
I saw and examined the patient.
The Sleep Lab Technologist's note was reviewed and I agree with the note.
Comment: No complaints, pain controlled, denies n/v with NGT to suction. Denies flatus/BM. Hinojosa out and voiding. Exam with moderate distention, incisions cdi. Cont NPO/IVF/NGT. Tentatively for TPN to start tomorrow if no ROBF.
Original Note:
Today's Communication / Plan
-
NGT to LIWS
OOB as tolerated
Assessment / Plan
-
Assessment: 73F with high grade SBO who is now POD #2 Ex lap converted to open for JENNIFER/enterolysis and repair of enterotomy
AFVSS
Leukocytosis noted post op, likely reactive. Trending down.
Electrolytes improved
Awaiting bowel function, NGT in place
Plan:
NPO with NGT until ROBF
Consult nutrition and check nutritional labs. Has been NPO for about 6-7 days, may need TPN
Analgesics with Ofirmev/Dilaudid, antiemetics prn
IVF while NPO
IV abx x3 days post op
Trend labs/vitals
Encourage activity/OOB
Lovenox for VTE ppx
Hospitalist following with us for medical management
Subjective Data
-
Date of Service: June 09, 2023
Patient seen and examined at bedside with Dr. Evangelista. Intermittent abdominal pain with bloating. Not passing flatus or stool yet. Nausea with NGT clamped for activity.
Objective Data
-
Intake and Output
06/08/23 06/09/23 06/10/23
06:59 06:59 06:59
Intake Total 2024 2350 / 2350
Output Total 805 / 805 1235 / 1235
Balance 1220 / 1220 1115 / 1115
Intake:
Oral fluids 60 / 60
IV fluids (Total) 1675 / 1675 2200 / 2200
Normosol 175 / 175
IV piggybacks 200 / 200 60 / 60
Amount instilled into GI Tube ( 90 / 90 90 / 90
Total)
[place] Sump 90 / 90 90 / 90
Output:
Gastrointestinal tube output ( 255 / 255 535 / 535
Total)
[place] Sump 255 / 255 535 / 535
Urine, Hinojosa 550 / 550
Urine, Voided 700 / 700
Vital Signs
Temp Pulse Resp BP Pulse Ox
97.5 F 89 14 122/76 94
06/09/23 07:17 06/09/23 07:17 06/09/23 07:17 06/09/23 07:17 06/09/23 07:17
Lab Results
06/09/23 05:27
06/09/23 05:27
Calcium 7.5 mg/dl (8.4-10.2) L 06/09/23 05:27
Total Bilirubin 0.5 mg/dl (0.2-1.3) 06/09/23 05:27
AST 26 U/L (14-36) 06/09/23 05:27
ALT 15 U/L (0-35) 06/09/23 05:27
Alkaline Phosphatase 75 U/L (38-126) 06/09/23 05:27
Total Protein 4.9 g/dl (6.3-8.2) L 06/09/23 05:27
Albumin 2.6 g/dl (3.5-5.0) L 06/09/23 05:27
Physical Exam
-
NAD AAOx3
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
[2023-06-09] MEDS: INVANZ 60 MG IV (14:44)
[2023-06-09 16:29] VITALS: BP 114/64
[2023-06-09] MEDS: LOVENOX 40 MG SC (17:17)
[2023-06-09] MEDS: DILAUDID 0.25 MG IV (17:43)
[2023-06-09 23:05] VITALS: BP 113/62
[2023-06-10 06:16] LABS: Hematocrit 39.7 % (37.0-47.0); Hemoglobin 12.9 g/dL (12.0-16.0); Mean Corp Hgb Conc. 32.5 g/dL (33.0-37.0); Mean Corpuscular Volume 95.4 fL (81.0-99.0); Mean Platelet Volume 10.5 fL (7.4-10.4); Platelet Count 218 10^3/uL (130-400); Red Blood Cell Count 4.16 10^6/uL (4.20-5.40); Red Cell Dist. Width 13.8 % (11.5-14.5); White Blood Cell Count 12.8 10^3/uL (4.8-10.8)
[2023-06-10 06:36] LABS: Blood Urea Nitrogen 26 mg/dl (7-17); Calcium 7.5 mg/dl (8.4-10.2); Carbon Dioxide 29 mmol/L (22-30); Chloride 115 mmol/L (98-107); Estimated Creatinine Clearance 61 ml/min; Glucose 100 mg/dl (70-99); Magnesium 2.5 mg/dl (1.6-2.3); Phosphorus 1.1 mg/dl (2.5-4.5); Potassium 4.4 mmol/L (3.5-5.1); Sodium 144 mmol/L (135-145); Triglycerides 141 mg/dl (10-149); eGFR > 60.00
[2023-06-10 06:46] LABS: Prealbumin (Transthyretin) 6.7 mg/dl (17.6-36.0)
[2023-06-10 07:45] VITALS: BP 117/75
--- NOTE | 2023-06-10 08:35 | W.PN.HOSP.TC ---
Today's Communication/Plan
-
Monitor electrolytes and monitor for refeeding syndrome
Appreciate surgery recommendations
Continue TPN
Assessment / Plan
Assessment / Plan
Physical Exam
General: Well Developed and No Apparent Distress
HEENT: Normocephalic, Atraumatic, Moist Mucous Membranes.� Nasogastric tube with bilious output.
Respiratory: Clear to Auscultation
Cardiac: Regular Rhythm and S1/S2; Negative Murmur, Rub or Gallop
GI: Mild distension. Mild tenderness at incision
Musculoskeletal: No Cyanosis and No Edema
Skin: Warm. Dry.
Neuro: Awake, Alert, Oriented, AO x 3 and Nonfocal/Grossly Intact
Psych: Calm
Assessment/Plan
# High grade small bowel obstruction, abdominal pain s/p Laparoscopic converted to open lysis of adhesions/enterolysis, repair of enterotomy by Dr. Beasley on 06/07
Failed conservative management
Clean sutures
WBC is coming down
Afebrile
No tachycardia
Continue empiric prophylactic intravenous Ertapenem due to small enterotomy seen during surgery.
Not passing gas yet. No BS on exam.
c/w NG, still significant output
No food for 7 days, surgery recommend PICC and started TPN today
c/w supportive care
IV pain medicine for pain and discomfort
IV antiemetics
Surgery input appreciated
Monitor for Refeeding Syndrome and watch electrolytes
# Hypokalemia
K is 3.9
replaced with IV KCl in IVF
#Hypophosphatemia
-Hopefully will correct with TPN
-If it remains low, can add sodium phosphate to the TPN or increase K-Phos
# Lactic acidosis, resolved. � No fever.� No leukocytosis.
Patient is nontoxic-appearing
# Hypernatremia, resolved.
c/w IVF
# Acute kidney injury due to pre-renal etiology. Creatinine down to 0.7
Creatinine is down to 0.8
KERRIE was pre-renal.
c/w IVF
Monitor for retention
# Elevated liver enzymes.� Resolved. Likely related to dehydration.�
#History of tobacco use
# Underweight.� Consistent with patient's body habitus
Anticipated Discharge: > 48 hours
Subjective/Interval History
-
Date of Service: June 10, 2023
Patient was seen and examined. She reported feeling okay, no new symptoms or complaints except for abdominal discomfort.
Objective Data
-
Labs:
Laboratory Results
06/10/23
05:19
WBC 12.8 H
Hgb 12.9
Hct 39.7
Plt Count 218
Sodium 144
Potassium 4.4
Chloride 115 H
Carbon Dioxide 29
BUN 26 H
Creatinine 0.6
Glucose 100 H
Calcium 7.5 L
Vital Signs:
Vital Signs
Temp Pulse Resp BP Pulse Ox
97.9 F 90 18 117/75 96
06/10/23 07:45 06/10/23 07:45 06/10/23 07:45 06/10/23 07:45 06/10/23 07:45
I&O
06/09/23 06/10/23 06/11/23
06:59 06:59 06:59
Intake Total 2350 / 2350 2420 / 2420
Output Total 1235 / 1235 1700 / 1700
Balance 1115 / 1115 720 / 720
[2023-06-10] MEDS: PROTONIX IV 40 MG IV (08:40)
[2023-06-10] MEDS: NSS (PRESERVATIVE FREE) 10 ML IV (08:40)
[2023-06-10] MEDS: D5/0.45%NSS with KCL 40 MEQ 1000 IV ×3 (08:45→21:53)
[2023-06-10] MEDS: OFIRMEV 100 IV ×2 (08:46→15:58)
--- NOTE | 2023-06-10 09:17 | W.PN.GS2 ---
Addendum entered and electronically signed by Tomas Kinsey MD 06/10/23 09:44:
I saw and examined the patient independently.
The Nurse Practitioner Home Assessments's note was reviewed and I agree with the note, assessment and plan except where noted below.
Comment: 73-year-old female high-grade SBO postoperative day 3 status post diagnostic laparoscopy converted to open exploratory laparotomy/JENNIFER and repair of enterotomy.
Expected ileus. Await return of bowel function
Continue NG tube to low intermittent wall suction.
Pain control
No food for 7 days, recommend PICC and starting TPN today, we will write for this.
IV antibiotics x 4 days.
Original Note:
Today's Communication / Plan
-
Place picc and initiate TPN
Continue NGT
Assessment / Plan
-
Assessment: 73F with high grade SBO who is now POD #3 Ex lap converted to open for JENNIFER/enterolysis and repair of enterotomy
AFVSS
Leukocytosis noted post op, likely reactive. Continues to trend down.
Expected post operative ileus. Awaiting bowel function, NGT to suction with bilious outputs
Plan:
NPO with NGT until ROBF
Will place PICC and start TPN, appreciate nutrition recs
Analgesics with Ofirmev/Toradol/Dilaudid, antiemetics prn
IVF through today until TPN starts
IV abx x3 days post op
Trend labs/vitals
Encourage activity/OOB
Lovenox for VTE ppx
Hospitalist following with us for medical management
Subjective Data
-
Date of Service: June 10, 2023
Patient seen and examined at bedside with Dr. Kinsey. Denies n/v but doesn't 'feel well' today. Notes abdominal discomfort/bloating. No passage of flatus or BM as of yet. Voiding without difficulty. Questions addressed
Objective Data
-
Intake and Output
06/09/23 06/10/23 06/11/23
06:59 06:59 06:59
Intake Total 2350 / 2350 2420 / 2420
Output Total 1235 / 1235 1700 / 1700
Balance 1115 / 1115 720 / 720
Intake:
IV fluids (Total) 2200 / 2200 2300 / 2300
IV piggybacks 60 / 60 60 / 60
Amount instilled into GI Tube ( 90 / 90 60 / 60
Total)
[place] Sump 90 / 90 60 / 60
Output:
Gastrointestinal tube output ( 535 / 535 700 / 700
Total)
[place] Sump 535 / 535 700 / 700
Urine, Voided 700 / 700 1000 / 1000
Vital Signs
Temp Pulse Resp BP Pulse Ox
97.9 F 90 18 117/75 96
06/10/23 07:45 06/10/23 07:45 06/10/23 07:45 06/10/23 07:45 06/10/23 07:45
Lab Results
06/10/23 05:19
06/10/23 05:19
Calcium 7.5 mg/dl (8.4-10.2) L 06/10/23 05:19
Phosphorus 1.1 mg/dl (2.5-4.5) L 06/10/23 05:19
Magnesium 2.5 mg/dl (1.6-2.3) H 06/10/23 05:19
Total Bilirubin 0.5 mg/dl (0.2-1.3) 06/09/23 05:27
AST 26 U/L (14-36) 06/09/23 05:27
ALT 15 U/L (0-35) 06/09/23 05:27
Alkaline Phosphatase 75 U/L (38-126) 06/09/23 05:27
Total Protein 4.9 g/dl (6.3-8.2) L 06/09/23 05:27
Albumin 2.6 g/dl (3.5-5.0) L 06/09/23 05:27
Physical Exam
-
NAD AAOx3
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
[2023-06-10] MEDS: INVANZ 60 MG IV (13:11)
--- NOTE | 2023-06-10 14:45 | PN.CDI ---
CDI
- -
CDI:
Physician Documentation Request
Admit Date: 06/04/23 15:22
Dear Doctor Ramos,
Please review the following and provide your response in the progress notes.
Clinical Indicators:
Operative Findings:
#...adhesions to lower midline abdominal wall and to prior small bowel anastomosis.
#...lap lysis of abd wall SB adhesions ->
#...conversion to lower midline laparotomy for enterolysis around SB anastomosis.
#small enterotomy in upstream SB d/t severe dilation/thinning of wall
#...d/t obstruction at laparoscopic grasper site.
#closed primarily with 2 layer closure.
Please clarify the following:
Enterotomy (and subsequent repair) is unexpected but it is NOT a complication of the surgery
Enterotomy (and subsequent repair) is inherent to/unavoidable during the surgery and is not a complication
Enterotomy (and subsequent repair) is a complication of the surgery
Enterotomy (and subsequent repair) is an expected occurrence and is not a complication of surgery
Other
Use of terms such as suspected, likely, concern for, or probable (associated with a specific diagnosis that is being evaluated, monitored, or treated as if it exists) are acceptable and can be coded in the inpatient setting, when documented at the
time of discharge.
Thank you,
Belinda Gonsalez RN BSN CCDS
CDI Specialist
please contact via tiger text
Please use your independent medical judgment in providing your response.
[2023-06-10 15:20] VITALS: BP 156/58
--- NOTE | 2023-06-10 15:22 | CM ---
Patient admitted with SBO. Original plan home with no needs due to prior independence. Now, post-op Day #3 S/P diagnostic laparoscopy and open explor lap: lysis of adhesions and enterotomy. Need to await return of bowel function, NGT to wall
suction, initiation of TPN and IV/AB x 4 days. Will continue to follow and reassess for discharge needs as medically progresses.
[2023-06-10 16:06] VITALS: BP 156/58
[2023-06-10] MEDS: LOVENOX 40 MG SC (17:02)
[2023-06-10] MEDS: Parenteral Nutrition, Central 2400 IV (21:30)
[2023-06-10 23:43] VITALS: BP 127/67
[2023-06-11] MEDS: TORADOL 10 MG IV ×2 (01:11→12:28)
[2023-06-11 03:17] VITALS: BP 111/65
[2023-06-11 07:35] LABS: Blood Urea Nitrogen 20 mg/dl (7-17); Calcium 7.4 mg/dl (8.4-10.2); Carbon Dioxide 24 mmol/L (22-30); Chloride 113 mmol/L (98-107); Estimated Creatinine Clearance 61 ml/min; Glucose 206 mg/dl (70-99); Magnesium 2.2 mg/dl (1.6-2.3); Phosphorus 1.5 mg/dl (2.5-4.5); Potassium 4.7 mmol/L (3.5-5.1); Sodium 136 mmol/L (135-145); eGFR > 60.00
[2023-06-11 07:48] VITALS: BP 131/67
--- NOTE | 2023-06-11 07:49 | W.PN.GS2 ---
Today's Communication / Plan
-
-- No major changes, TPN renewed
Assessment / Plan
-
Assessment: 73F with high grade SBO who is now POD #4 s/p ex lap converted to open for JENNIFER/enterolysis and repair of enterotomy
AFVSS
Leukocytosis noted post op, likely reactive. Continues to trend down.
Expected ileus especially given prolonged timeframe of presentation. Awaiting bowel function, NGT to suction with bilious outputs
Plan:
NPO with NGT until ROBF
PICC, TPN renewed
Analgesics with Ofirmev/Dilaudid, antiemetics pr
IV abx x3 days post op
Trend labs/vitals
Encourage activity/OOB
Lovenox for VTE ppx
Hospitalist following with us for medical management
Subjective Data
-
Date of Service: June 11, 2023
Reports abdominal soreness and distention. No nausea or vomiting. No flatus or BM. No fevers.
Objective Data
-
Intake and Output
06/10/23 06/11/23 06/12/23
06:59 06:59 06:59
Intake Total 2420 / 2420 3050 / 3050
Output Total 1700 / 1700 1200 / 1200
Balance 720 / 720 1850 / 1850
Intake:
IV fluids (Total) 2300 / 2300 1880 / 1880
IV piggybacks 60 / 60 200 / 200
TPN/PPN 790 / 790
Amount instilled into GI Tube ( 60 / 60 180 / 180
Total)
[place] Sump 60 / 60 180 / 180
Output:
Gastrointestinal tube output ( 700 / 700 700 / 700
Total)
[place] Sump 700 / 700 700 / 700
Urine, Voided 1000 / 1000 500 / 500
Vital Signs
Temp Pulse Resp BP Pulse Ox
98.4 F 73 20 111/65 94
06/11/23 03:17 06/11/23 03:17 06/11/23 03:17 06/11/23 03:17 06/11/23 03:17
Lab Results
06/10/23 05:19
06/11/23 06:56
Calcium 7.4 mg/dl (8.4-10.2) L 06/11/23 06:56
Phosphorus 1.5 mg/dl (2.5-4.5) L 06/11/23 06:56
Magnesium 2.2 mg/dl (1.6-2.3) 06/11/23 06:56
Total Bilirubin 0.5 mg/dl (0.2-1.3) 06/09/23 05:27
AST 26 U/L (14-36) 06/09/23 05:27
ALT 15 U/L (0-35) 06/09/23 05:27
Alkaline Phosphatase 75 U/L (38-126) 06/09/23 05:27
Total Protein 4.9 g/dl (6.3-8.2) L 06/09/23 05:27
Albumin 2.6 g/dl (3.5-5.0) L 06/09/23 05:27
Physical Exam
-
Gen: NAD
HEENT: bilious output
Abd: soft, moderate tenderness, distended, tympanitic, non-peritoneal, incisions c/d/i - no erythema, ecchymosis or drainage
[2023-06-11] MEDS: NSS (PRESERVATIVE FREE) 10 ML IV (08:14)
[2023-06-11] MEDS: FLUSH (NSS) 3 FLUSH IV (08:15)
[2023-06-11] MEDS: DILAUDID 0.5 MG IV (08:15)
[2023-06-11] MEDS: PROTONIX IV 40 MG IV (08:15)
[2023-06-11 09:10] LABS: Hematocrit 38.7 % (37.0-47.0); Hemoglobin 12.8 g/dL (12.0-16.0); Mean Corp Hgb Conc. 33.1 g/dL (33.0-37.0); Mean Corpuscular Hgb 31.2 pg (27.0-31.0); Mean Corpuscular Volume 94.4 fL (81.0-99.0); Mean Platelet Volume 10.1 fL (7.4-10.4); Platelet Count 182 10^3/uL (130-400); Red Cell Dist. Width 14.1 % (11.5-14.5); White Blood Cell Count 6.4 10^3/uL (4.8-10.8)
[2023-06-11 12:11] LABS: Glucose - Point of Care 145 mg/dl (70-99)
[2023-06-11] MEDS: FLUSH (NSS) 2 FLUSH IV (12:29)
--- NOTE | 2023-06-11 15:05 | W.PN.HOSP.TC ---
Today's Communication/Plan
-
Continue TPN
Appreciate Surgery recommendations
Assessment / Plan
Assessment / Plan
Physical Exam
General: Well Developed and No Apparent Distress
HEENT: Normocephalic, Atraumatic, Moist Mucous Membranes.� Nasogastric tube with bilious output.
Respiratory: Clear to Auscultation
Cardiac: Regular Rhythm and S1/S2
GI: Mild distension. Mild tenderness at incision
Musculoskeletal: No Cyanosis and No Edema
Skin: Warm. Dry.
Neuro: Awake, Alert, Oriented, AO x 3 and Nonfocal/Grossly Intact
Psych: Calm
Assessment/Plan
# High grade small bowel obstruction, abdominal pain s/p Laparoscopic converted to open lysis of adhesions/enterolysis, repair of enterotomy by Dr. Beasley on 06/07
Failed conservative management
Clean sutures
WBC is coming down
Afebrile
No tachycardia
Continue empiric prophylactic intravenous Ertapenem due to small enterotomy seen during surgery.
Not passing gas yet. No BS on exam.
c/w NG, still significant output
No food for 7 days, surgery recommend PICC and started TPN on June 11, 2023
c/w supportive care
IV pain medicine for pain and discomfort
IV antiemetics
Surgery input appreciated
Monitor for Refeeding Syndrome and watch electrolytes
# Hypokalemia
replaced with IV KCl in IVF
#Hypophosphatemia
-Hopefully will correct with TPN
-If it remains low, can add sodium phosphate to the TPN or increase K-Phos
# Lactic acidosis, resolved. � No fever.� No leukocytosis.
Patient is nontoxic-appearing
# Hypernatremia, resolved.
c/w IVF
# Acute kidney injury due to pre-renal etiology. Creatinine down to 0.7
Creatinine is down to 0.8
KERRIE was pre-renal.
c/w IVF
Monitor for retention
# Elevated liver enzymes.� Resolved. Likely related to dehydration.�
#History of tobacco use
# Underweight.� Consistent with patient's body habitus
Anticipated Discharge: > 48 hours
Subjective/Interval History
-
Date of Service: June 11, 2023
Patient was seen and examined. She reported a funny sensation near her rectum but otherwise denied any other new complaints.
Objective Data
-
Labs:
Laboratory Results
06/11/23 06/11/23
06:56 08:57
WBC 6.4
Hgb 12.8
Hct 38.7
Plt Count 182
Sodium 136 D
Potassium 4.7
Chloride 113 H
Carbon Dioxide 24
BUN 20 H
Creatinine 0.4 L
Glucose 206 H
Calcium 7.4 L
Vital Signs:
Vital Signs
Temp Pulse Resp BP Pulse Ox
97.6 F 65 18 131/67 94
06/11/23 07:48 06/11/23 07:48 06/11/23 07:48 06/11/23 07:48 06/11/23 08:00
I&O
06/10/23 06/11/23 06/12/23
06:59 06:59 06:59
Intake Total 2420 / 2420 3050 / 3050
Output Total 1700 / 1700 1200 / 1200
Balance 720 / 720 1850 / 1850
[2023-06-11 16:02] VITALS: BP 100/63
[2023-06-11 17:17] LABS: Glucose - Point of Care 183 mg/dl (70-99)
[2023-06-11] MEDS: LOVENOX 40 MG SC (18:28)
[2023-06-11] MEDS: Parenteral Nutrition, Central 2400 IV (21:25)
[2023-06-11 23:25] VITALS: BP 123/70
[2023-06-11 23:34] LABS: Glucose - Point of Care 127 mg/dl (70-99)
[2023-06-12 05:19] VITALS: BMI 20.4
[2023-06-12 06:10] LABS: Glucose - Point of Care 129 mg/dl (70-99)
[2023-06-12 06:53] LABS: Blood Urea Nitrogen 21 mg/dl (7-17); Calcium 7.5 mg/dl (8.4-10.2); Carbon Dioxide 23 mmol/L (22-30); Chloride 112 mmol/L (98-107); Estimated Creatinine Clearance 69 ml/min; Glucose 129 mg/dl (70-99); Magnesium 1.9 mg/dl (1.6-2.3); Phosphorus 1.6 mg/dl (2.5-4.5); Potassium 4.2 mmol/L (3.5-5.1); Sodium 136 mmol/L (135-145); eGFR > 60.00
--- NOTE | 2023-06-12 07:23 | W.PN.GS2 ---
Today's Communication / Plan
-
`
Assessment / Plan
-
Assessment: 73F POD#5 s/p ex lap converted to open for JENNIFER/enterolysis and repair of enterotomy (06/07/23) for high grade pSBO
--in the setting of the patient presenting with a SBO and resultant degree of bowel distention, during the operative procedure with lysis of adhesions and need for bowel manipulation an enterotomy is a known risk inherent to the nature of the
procedure
AFVSS
Leukocytosis resolved, e-lytes balanced
Ileus expected given prolonged timeframe of SBO presentation and operative findings.
Plan:
NPO with NGT until ROBF; okay to ambulate/OOB with NGT clamped
PICC, TPN renewed - adjusted NaPhos and KPhos today, volume and macronutrients stable
Encourage activity/OOB/consult PT
Lovenox for VTE ppx
Protonix for GIp while NGT in place
daily BMP
Subjective Data
-
Date of Service: June 12, 2023
pt seen and examined
post op pain controlled, no nausea
persistent distention, rare passage of flatus, no BMs
overall feels weak/deconditioned
Objective Data
-
Intake and Output
06/11/23 06/12/23 06/13/23
06:59 06:59 06:59
Intake Total 3050 / 3050 90 / 90
Output Total 1200 / 1200 1075 / 1075
Balance 1850 / 1850 -985 / -985
Intake:
Oral fluids 0 / 0
IV fluids (Total) 1880 / 1880 0 / 0
IV piggybacks 200 / 200 0 / 0
TPN/PPN 790 / 790
Amount instilled into GI Tube ( 180 / 180 90 / 90
Total)
[place] Sump 180 / 180 90 / 90
Output:
Gastrointestinal tube output ( 700 / 700 275 / 275
Total)
[place] Sump 700 / 700 275 / 275
Urine, Voided 500 / 500 800 / 800
Vital Signs
Temp Pulse Resp BP Pulse Ox
98.3 F 84 18 123/70 96
06/11/23 23:25 06/11/23 23:25 06/11/23 23:25 06/11/23 23:25 06/11/23 23:25
Lab Results
06/11/23 08:57
06/12/23 05:29
Calcium 7.5 mg/dl (8.4-10.2) L 06/12/23 05:29
Phosphorus 1.6 mg/dl (2.5-4.5) L 06/12/23 05:29
Magnesium 1.9 mg/dl (1.6-2.3) 06/12/23 05:29
Total Bilirubin 0.5 mg/dl (0.2-1.3) 06/09/23 05:27
AST 26 U/L (14-36) 06/09/23 05:27
ALT 15 U/L (0-35) 06/09/23 05:27
Alkaline Phosphatase 75 U/L (38-126) 06/09/23 05:27
Total Protein 4.9 g/dl (6.3-8.2) L 06/09/23 05:27
Albumin 2.6 g/dl (3.5-5.0) L 06/09/23 05:27
Physical Exam
-
NAD AAOx3
ABD: distended, tympanitic, minimal TTP
incisions with glue dressings - no erythema, no drainage
NGT in place with bilious output
[2023-06-12 07:30] VITALS: BP 109/70
[2023-06-12] MEDS: NSS (PRESERVATIVE FREE) 10 ML IV (08:48)
[2023-06-12] MEDS: PROTONIX IV 40 MG IV (08:49)
[2023-06-12 10:42] VITALS: BP 122/60; PULSE 74
--- NOTE | 2023-06-12 11:18 | CM ---
Reviewed the chart notes. Patient continues with TPN and NPO with NGT until ROBF. Patient to ambulate OOB with NGT clamped. CM continues to be available to patient/family and is monitoring medical plan for needs at discharge.
Plan: Discharge to home with possibility of VN services.
[2023-06-12 11:31] LABS: Glucose - Point of Care 128 mg/dl (70-99)
[2023-06-12] MEDS: TORADOL 10 MG IV (13:49)
[2023-06-12 16:08] VITALS: BP 137/64
--- NOTE | 2023-06-12 16:31 | W.PN.HOSP.TC ---
Today's Communication/Plan
-
Please see below
Assessment / Plan
Assessment / Plan
Physical Exam
General: Well Developed and No Apparent Distress
HEENT: Normocephalic, Atraumatic, Moist Mucous Membranes.� Nasogastric tube with bilious output.
Respiratory: Clear to Auscultation
Cardiac: Regular Rhythm and S1/S2
GI: Mild distension. Mild tenderness at incision
Musculoskeletal: No Cyanosis and No Edema
Skin: Warm. Dry.
Neuro: Awake, Alert, Oriented, AO x 3 and Nonfocal/Grossly Intact
Psych: Calm
Assessment/Plan
# High grade small bowel obstruction, abdominal pain s/p Laparoscopic converted to open lysis of adhesions/enterolysis, repair of enterotomy by Dr. Beasley on 06/07
# History of RIGHT inguinal hernia repair with SBR in the
# History of open LEFT inguinal hernia repair years later
Failed conservative management
Clean sutures
WBC is coming down
Afebrile
No tachycardia
Continue empiric prophylactic intravenous Ertapenem due to small enterotomy seen during surgery.
Not passing gas yet. No BS on exam.
Continue with nasogastric tube, still significant output
No food for 7 days, surgery recommend PICC and started TPN on June 11, 2023
c/w supportive care
IV pain medicine for pain and discomfort
IV antiemetics
Continue Protonix for gastrointestinal prophylaxis while NG tube is in place
Surgery input appreciated
Monitor for Refeeding Syndrome and watch electrolytes
PT/OT -- okay to ambulate/OOB with NGT clamped
# Hypokalemia
On tube feeds now
Monitor BMP and electrolytes
#Hypophosphatemia
-Hopefully will correct with TPN
-If it remains low, can add sodium phosphate to the TPN or increase K-Phos
# Lactic acidosis, resolved. � No fever.�
Patient is nontoxic-appearing
# Hypernatremia, resolved.
c/w tube feeds
# Acute kidney injury due to pre-renal etiology. Creatinine down to 0.7
Creatinine is down to 0.8
KERRIE was pre-renal.
Monitor for retention
# Elevated liver enzymes.� Resolved. Likely related to dehydration.�
#History of tobacco use
# Underweight.� Consistent with patient's body habitus
On June 12, 2023, I spoke to patient's daughter (who was on speaker phone inside the patient's room). I told her that I would let surgeon know to call her to answer her questions which were more surgery-specific.
Anticipated Discharge: > 48 hours
Subjective/Interval History
-
Date of Service: June 12, 2023
Patient was seen and examined. She reported an uncomfortable sensation inside of her rectum, denied any other new signficant complaints.
Objective Data
-
Labs:
Laboratory Results
06/12/23
05:29
Sodium 136
Potassium 4.2
Chloride 112 H
Carbon Dioxide 23
BUN 21 H
Creatinine 0.4 L
Glucose 129 H
Calcium 7.5 L
Vital Signs:
Vital Signs
Temp Pulse Resp BP Pulse Ox
97.4 F 86 20 137/64 94
06/12/23 16:08 06/12/23 16:08 06/12/23 16:08 06/12/23 16:08 06/12/23 16:08
I&O
06/11/23 06/12/23 06/13/23
06:59 06:59 06:59
Intake Total 3050 / 3050 90 / 90
Output Total 1200 / 1200 1075 / 1075
Balance 1850 / 1850 -985 / -985
[2023-06-12 17:14] LABS: Glucose - Point of Care 127 mg/dl (70-99)
[2023-06-12] MEDS: LOVENOX 40 MG SC (18:24)
[2023-06-12 20:32] VITALS: BP 121/69
[2023-06-12 20:46] LABS: Hematocrit 33.6 % (37.0-47.0); Hemoglobin 11.5 g/dL (12.0-16.0); Mean Corp Hgb Conc. 34.2 g/dL (33.0-37.0); Mean Corpuscular Hgb 30.8 pg (27.0-31.0); Mean Corpuscular Volume 90.1 fL (81.0-99.0); Platelet Count 194 10^3/uL (130-400); Red Blood Cell Count 3.73 10^6/uL (4.20-5.40); Red Cell Dist. Width 14.2 % (11.5-14.5); White Blood Cell Count 10.5 10^3/uL (4.8-10.8)
[2023-06-12] MEDS: Parenteral Nutrition, Central 2400 IV (20:59)
[2023-06-12 23:09] VITALS: BP 121/67
[2023-06-12 23:48] LABS: Glucose - Point of Care 117 mg/dl (70-99)
[2023-06-13] MEDS: TORADOL 10 MG IV ×2 (03:27→13:21)
[2023-06-13 05:05] VITALS: BMI 20.4
[2023-06-13 05:22] LABS: Glucose - Point of Care 122 mg/dl (70-99)
[2023-06-13 06:30] LABS: % Basophils 0.5 % (0-2); % Eosinophils 0.7 % (0-6); % Immature Granulocytes 2.8 % (0-0.5); % Lymphocytes 13.8 % (20.5-51.1); % Monocytes 5.8 % (1.7-9.3); % Neutrophils 76.4 % (42.2-75.2); Absolute Eosinophils 0.1 10^3/uL (0-0.7); Absolute Immature Granulocytes 0.2 10^3/uL (0-0.05); Absolute Lymphocytes 1.2 10^3/uL (1.2-3.4); Absolute Monocytes 0.5 10^3/uL (0.1-0.6); Absolute Neutrophils 6.5 10^3/uL (1.4-6.5); Hematocrit 32.7 % (37.0-47.0); Hemoglobin 11.3 g/dL (12.0-16.0); Mean Corp Hgb Conc. 34.6 g/dL (33.0-37.0); Mean Corpuscular Hgb 31.7 pg (27.0-31.0); Mean Corpuscular Volume 91.9 fL (81.0-99.0); Mean Platelet Volume 10.6 fL (7.4-10.4); Nucleated Red Blood Cells % 0 %; Platelet Count 204 10^3/uL (130-400); Red Blood Cell Count 3.56 10^6/uL (4.20-5.40); Red Cell Dist. Width 14.2 % (11.5-14.5); White Blood Cell Count 8.5 10^3/uL (4.8-10.8)
[2023-06-13 06:52] LABS: Blood Urea Nitrogen 20 mg/dl (7-17); Calcium 7.7 mg/dl (8.4-10.2); Carbon Dioxide 22 mmol/L (22-30); Chloride 102 mmol/L (98-107); Estimated Creatinine Clearance 69 ml/min; Glucose 128 mg/dl (70-99); Magnesium 1.9 mg/dl (1.6-2.3); Phosphorus 2.4 mg/dl (2.5-4.5); Potassium 4.2 mmol/L (3.5-5.1); Sodium 134 mmol/L (135-145); eGFR > 60.00
[2023-06-13 07:05] VITALS: BP 123/75
--- NOTE | 2023-06-13 08:34 | W.PN.GS2 ---
Today's Communication / Plan
-
`
Assessment / Plan
-
Assessment: 73F POD#6 s/p ex lap converted to open for JENNIFER/enterolysis and repair of enterotomy (06/07/23) for high grade pSBO
--in the setting of the patient presenting with a SBO and resultant degree of bowel distention, during the operative procedure with lysis of adhesions and need for bowel manipulation an enterotomy is a known risk inherent to the nature of the
procedure
AFVSS
hyponatremia - adjusted TPN volume
signs of returning GI function loose +BMs
Plan:
NPO with NGT for today, if outputs become less bilious and distention continues plan from removal tomorrow
okay to ambulate/OOB with NGT clamped
PICC, TPN renewed - volume reduced, otherwise same composition
Encourage activity/OOB/consult PT
Lovenox for VTE ppx
Protonix for GIp while NGT in place
daily BMP
Subjective Data
-
Date of Service: June 13, 2023
pt seen and examined
bloating/distention improving
passing flatus and now with multiple large loose BMs
no nausea
Objective Data
-
Intake and Output
06/12/23 06/13/23 06/14/23
06:59 06:59 06:59
Intake Total 90 / 90 2550 / 2550
Output Total 1075 / 1075 1370 / 1370
Balance -985 / -985 1180 / 1180
Intake:
Oral fluids 0 / 0 0 / 0
IV fluids (Total) 0 / 0 0 / 0
IV piggybacks 0 / 0 0 / 0
TPN/PPN 2400 / 2400
Amount instilled into GI Tube ( 90 / 90 150 / 150
Total)
[place] Sump 90 / 90 150 / 150
Output:
Gastrointestinal tube output ( 275 / 275 370 / 370
Total)
[place] Sump 275 / 275 370 / 370
Urine, Voided 800 / 800 1000 / 1000
Other:
Number of approximated SMALL 1
amounts of urine
Number of approximated MODERATE 1
amounts of urine
Number of unmeasured liquid
stools
Rectum 1
Vital Signs
Temp Pulse Resp BP Pulse Ox
99.6 F 89 20 121/67 95
06/12/23 23:09 06/12/23 23:09 06/12/23 23:09 06/12/23 23:09 06/12/23 23:09
Lab Results
06/13/23 05:05
06/13/23 05:05
Calcium 7.7 mg/dl (8.4-10.2) L 06/13/23 05:05
Phosphorus 2.4 mg/dl (2.5-4.5) L 06/13/23 05:05
Magnesium 1.9 mg/dl (1.6-2.3) 06/13/23 05:05
Total Bilirubin 0.5 mg/dl (0.2-1.3) 06/09/23 05:27
AST 26 U/L (14-36) 06/09/23 05:27
ALT 15 U/L (0-35) 06/09/23 05:27
Alkaline Phosphatase 75 U/L (38-126) 06/09/23 05:27
Total Protein 4.9 g/dl (6.3-8.2) L 06/09/23 05:27
Albumin 2.0 g/dl (3.5-5.0) L 06/13/23 05:05
Physical Exam
-
NAD AAOx3
ABD: softer but remains distended
nontender, incisions with glue dressings - faint erythema at suprapubic sit but not warm to touch or spreading
[2023-06-13 09:05] VITALS: BP 123/75
[2023-06-13] MEDS: PROTONIX IV 40 MG IV (09:25)
[2023-06-13] MEDS: FLUSH (NSS) 1 FLUSH IV (09:25)
[2023-06-13] MEDS: NSS (PRESERVATIVE FREE) 10 ML IV (09:25)
--- NOTE | 2023-06-13 09:39 | CM ---
Reviewed the chart notes. Patient continues with TPN and NPO with NGT. Patient to ambulate OOB with NGT clamped. CM continues to be available to patient/family and is monitoring medical plan for needs at discharge.
Plan: Discharge to home with possibility of VN services.
[2023-06-13 11:50] LABS: Glucose - Point of Care 115 mg/dl (70-99)
[2023-06-13] MEDS: FLUSH (NSS) 2 FLUSH IV (13:22)
--- NOTE | 2023-06-13 15:43 | W.PN.HOSP.TC ---
Today's Communication/Plan
-
Doing better
Possible NG tube removal tomorrow
Assessment / Plan
Assessment / Plan
Physical Exam
General: Well Developed and No Apparent Distress
HEENT: Normocephalic, Atraumatic, Moist Mucous Membranes.� Nasogastric tube with bilious output.
Respiratory: Clear to Auscultation
Cardiac: Regular Rhythm and S1/S2
GI: Mild distension. Mild tenderness at incision
Musculoskeletal: No Cyanosis and No Edema
Skin: Warm. Dry.
Neuro: Awake, Alert, Oriented, AO x 3 and Nonfocal/Grossly Intact
Psych: Calm
Assessment/Plan
# High grade small bowel obstruction, abdominal pain s/p Laparoscopic converted to open lysis of adhesions/enterolysis, repair of enterotomy by Dr. Beasley on 06/07
# History of RIGHT inguinal hernia repair with SBR in the
# History of open LEFT inguinal hernia repair years later
Failed conservative management
Clean sutures
WBC is coming down
Afebrile
No tachycardia
Continue empiric prophylactic intravenous Ertapenem due to small enterotomy seen during surgery.
Not passing gas yet. No BS on exam.
Continue with nasogastric tube, still significant output
No food for 7 days, surgery recommend PICC and started TPN on June 11, 2023
c/w supportive care
IV pain medicine for pain and discomfort
IV antiemetics
Continue Protonix for gastrointestinal prophylaxis while NG tube is in place
Surgery input appreciated
Monitor for Refeeding Syndrome and watch electrolytes
PT/OT -- okay to ambulate/OOB with NGT clamped
# Hypokalemia
On tube feeds now
Monitor BMP and electrolytes
#Hypophosphatemia
-Hopefully will continue to correct with TPN
-If it remains low, can add sodium phosphate to the TPN or increase K-Phos
# Lactic acidosis, resolved. � No fever.�
Patient is nontoxic-appearing
# Hypernatremia, resolved.
c/w tube feeds
# Acute kidney injury due to pre-renal etiology. Creatinine down to 0.7
Creatinine is down to 0.8
KERRIE was pre-renal.
Monitor for retention
# Elevated liver enzymes.� Resolved. Likely related to dehydration.�
#History of tobacco use
# Underweight.� Consistent with patient's body habitus
On June 12, 2023, I spoke to patient's daughter (who was on speaker phone inside the patient's room). I told her that I would let surgeon know to call her to answer her questions which were more surgery-specific.
Anticipated Discharge: > 48 hours
Subjective/Interval History
-
Date of Service: June 13, 2023
Patient was seen and examined. She reported no new significant symptoms, she now passing a whole lot more gas and also having some bowel movements. She also reported less abdominal pain and tenderness.
Objective Data
-
Labs:
Laboratory Results
06/13/23
05:05
WBC 8.5
Hgb 11.3 L
Hct 32.7 L
Plt Count 204
Sodium 134 L
Potassium 4.2
Chloride 102
Carbon Dioxide 22
BUN 20 H
Creatinine 0.4 L
Glucose 128 H
Calcium 7.7 L
Vital Signs:
Vital Signs
Temp Pulse Resp BP Pulse Ox
97.7 F 79 15 123/75 99
06/13/23 07:05 06/13/23 07:05 06/13/23 07:05 06/13/23 07:05 06/13/23 07:05
I&O
06/12/23 06/13/23 06/14/23
06:59 06:59 06:59
Intake Total 90 / 90 2550 / 2550 60 / 60
Output Total 1075 / 1075 1370 / 1370
Balance -985 / -985 1180 / 1180 60 / 60
[2023-06-13 16:01] VITALS: BP 122/74
[2023-06-13 17:09] LABS: Glucose - Point of Care 110 mg/dl (70-99)
[2023-06-13] MEDS: LOVENOX 40 MG SC (17:09)
[2023-06-13] MEDS: Parenteral Nutrition, Central 1900 IV (20:59)
[2023-06-13 23:25] VITALS: BP 126/66
[2023-06-13 23:56] LABS: Glucose - Point of Care 119 mg/dl (70-99)
[2023-06-14 04:42] LABS: % Basophils 0.3 % (0-2); % Eosinophils 0.7 % (0-6); % Immature Granulocytes 5.1 % (0-0.5); % Lymphocytes 11.9 % (20.5-51.1); % Monocytes 6.4 % (1.7-9.3); % Neutrophils 75.6 % (42.2-75.2); Absolute Eosinophils 0.1 10^3/uL (0-0.7); Absolute Immature Granulocytes 0.5 10^3/uL (0-0.05); Absolute Lymphocytes 1.2 10^3/uL (1.2-3.4); Absolute Monocytes 0.7 10^3/uL (0.1-0.6); Absolute Neutrophils 7.7 10^3/uL (1.4-6.5); Hematocrit 31.5 % (37.0-47.0); Mean Corp Hgb Conc. 34.9 g/dL (33.0-37.0); Mean Corpuscular Hgb 31.6 pg (27.0-31.0); Mean Corpuscular Volume 90.5 fL (81.0-99.0); Mean Platelet Volume 10.1 fL (7.4-10.4); Nucleated Red Blood Cells % 0 %; Platelet Count 255 10^3/uL (130-400); Red Blood Cell Count 3.48 10^6/uL (4.20-5.40); White Blood Cell Count 10.2 10^3/uL (4.8-10.8)
[2023-06-14 06:23] LABS: Glucose - Point of Care 132 mg/dl (70-99)
[2023-06-14 07:40] VITALS: BP 125/70
[2023-06-14] MEDS: PROTONIX IV 40 MG IV (08:19)
[2023-06-14] MEDS: FLUSH (NSS) 2 FLUSH IV ×2 (08:19→10:23)
[2023-06-14] MEDS: NSS (PRESERVATIVE FREE) 10 ML IV (08:19)
--- NOTE | 2023-06-14 09:53 | W.PN.GS2 ---
Addendum entered and electronically signed by Abraham Evangelista MD 06/14/23 10:42:
I saw and examined the patient.
The Criminal Defense Attorney's note was reviewed and I agree with the note.
Comment: Passing flatus and stool, pain controlled, denies n/v, tolerating limited clamping for ambulation. Exam approp, incisions cdi though there is some new blanching erythema around the midline incision. Will restart abx to cover possible
superficial wound infection, cont to monitor the erythema. Will initiate 24 hr clamp trial (last admission she passed a 6 hr trial but did not do well after removal of the tube). Will start CLD. Cont TPN for today, may be able to stop tomorrow
pending PO intake
Original Note:
Today's Communication / Plan
-
Clamp NGT and start clear liquids as tolerated
Assessment / Plan
-
Assessment: 73F POD#7 s/p ex lap converted to open for JENNIFER/enterolysis and repair of enterotomy (06/07/23) for high grade pSBO
AFVSS
signs of returning GI function, loose +BMs
No leukocytosis. h/h stable
Mild blanching erythema noted to incision, abx resumed
Plan:
Clamp NGT today and start clears. Return NGT to suction if worsening distention or n/v.
Analgesics prn
PICC, TPN renewed
Encourage activity/OOB/consult PT
Trend labs
Lovenox for VTE ppx
Resume abx with zosyn
Protonix for GIp while NGT in place
Subjective Data
-
Date of Service: June 14, 2023
Patient seen and examined at bedside with Dr. Evangelista. Denies n/v. Passing flatus and loose stools. Abdominal bloating persists but denies abdominal pain. Incisional redness noted.
Objective Data
-
Intake and Output
06/13/23 06/14/23 06/15/23
06:59 06:59 06:59
Intake Total 2550 / 2550 1038 / 1038
Output Total 1370 / 1370 150 / 150
Balance 1180 / 1180 888 / 888
Intake:
Oral fluids 0 / 0
IV fluids (Total) 0 / 0
IV piggybacks 0 / 0
TPN/PPN 2400 / 2400 948 / 948
Amount instilled into GI Tube ( 150 / 150 90 / 90
Total)
[place] Sump 150 / 150 90 / 90
Output:
Gastrointestinal tube output ( 370 / 370 150 / 150
Total)
[place] Sump 370 / 370 150 / 150
Urine, Voided 1000 / 1000
Other:
Number of approximated SMALL 1 2
amounts of urine
Number of approximated MODERATE 1 3
amounts of urine
Number of unmeasured liquid
stools
Rectum 1
Vital Signs
Temp Pulse Resp BP Pulse Ox
98.0 F 74 17 125/70 97
06/14/23 07:40 06/14/23 07:40 06/14/23 07:40 06/14/23 07:40 06/14/23 07:40
Lab Results
06/14/23 04:21
06/13/23 05:05
Calcium 7.7 mg/dl (8.4-10.2) L 06/13/23 05:05
Phosphorus 2.4 mg/dl (2.5-4.5) L 06/13/23 05:05
Magnesium 1.9 mg/dl (1.6-2.3) 06/13/23 05:05
Total Bilirubin 0.5 mg/dl (0.2-1.3) 06/09/23 05:27
AST 26 U/L (14-36) 06/09/23 05:27
ALT 15 U/L (0-35) 06/09/23 05:27
Alkaline Phosphatase 75 U/L (38-126) 06/09/23 05:27
Total Protein 4.9 g/dl (6.3-8.2) L 06/09/23 05:27
Albumin 2.0 g/dl (3.5-5.0) L 06/13/23 05:05
Physical Exam
-
NAD AAOx3
ABD: soft but remains distended, NGT clamped with bilious drainage in canister
nontender, incisions with glue dressings - blanching erythema at suprapubic sit but not warm to touch
[2023-06-14] MEDS: ZOSYN 50 IV ×3 (10:21→21:18)
--- NOTE | 2023-06-14 11:48 | W.PN.HOSP.TC ---
Today's Communication/Plan
-
Surgery ordering labs
Continue TPN
Antibiotics
24 hour NG tube clamping trial plus clear liquids diet today, 06/14/23
Assessment / Plan
Assessment / Plan
Physical Exam
Physical Exam was not performed as patient was not present in her room at the time of attempted patient encounter.
Assessment/Plan
# High grade small bowel obstruction, abdominal pain s/p Laparoscopic converted to open lysis of adhesions/enterolysis, repair of enterotomy by Dr. Beasley on 06/07
# History of RIGHT inguinal hernia repair with SBR in the
# History of open LEFT inguinal hernia repair years later
Failed conservative management
Clean sutures
WBC came down
Afebrile
No tachycardia
Status post empiric prophylactic intravenous Ertapenem due to small enterotomy seen during surgery.
Now on Zosyn as per surgery -- continue to cover possible superficial wound infection, continue to monitor erythema
Not passing gas yet. No BS on exam.
Continue with nasogastric tube, still significant output
No food for 7 days, surgery recommend PICC and started TPN on June 11, 2023
c/w supportive care
IV pain medicine for pain and discomfort
IV antiemetics
Continue Protonix for gastrointestinal prophylaxis while NG tube is in place
Surgery input appreciated
Monitor for Refeeding Syndrome and watch electrolytes
PT/OT -- okay to ambulate/OOB with NGT clamped
24 hour NG tube clamping trial plus clear liquids diet today, 06/14/23
# Hypokalemia - IMPROVED
On tube feeds now
Monitor BMP and electrolytes
#Hypophosphatemia - IMPROVED
-Hopefully will continue to correct with TPN
-If it remains low, can add sodium phosphate to the TPN or increase K-Phos
#Lactic acidosis, resolved. � No fever.�
Patient is nontoxic-appearing
#Hypernatremia, resolved.
#Mild Hyponatremia
c/w tube feeds
# Acute kidney injury due to pre-renal etiology. Creatinine down to 0.4
KERRIE was pre-renal.
Monitor for retention
# Elevated liver enzymes.� Resolved. Likely related to dehydration.�
#History of tobacco use
# Underweight.� Consistent with patient's body habitus
On June 12, 2023, I spoke to patient's daughter (who was on speaker phone inside the patient's room). I told her that I would let surgeon know to call her to answer her questions which were more surgery-specific.
Anticipated Discharge: > 48 hours
Subjective/Interval History
-
Date of Service: June 14, 2023
Patient was not present in her room at the time of attempted patient encounter. Patient's chart was reviewed.
Objective Data
-
Labs:
Laboratory Results
06/14/23
04:21
WBC 10.2
Hgb 11.0 L
Hct 31.5 L
Plt Count 255 D
Vital Signs:
Vital Signs
Temp Pulse Resp BP Pulse Ox
98.0 F 74 17 125/70 97
06/14/23 07:40 06/14/23 07:40 06/14/23 07:40 06/14/23 07:40 06/14/23 07:40
I&O
06/13/23 06/14/23 06/15/23
06:59 06:59 06:59
Intake Total 2550 / 2550 1038 / 1038
Output Total 1370 / 1370 150 / 150
Balance 1180 / 1180 888 / 888
[2023-06-14 12:03] LABS: Glucose - Point of Care 124 mg/dl (70-99)
[2023-06-14 15:15] VITALS: BP 114/78
[2023-06-14] MEDS: TORADOL 10 MG IV (16:51)
[2023-06-14] MEDS: FLUSH (NSS) 3 FLUSH IV (16:52)
[2023-06-14] MEDS: LOVENOX 40 MG SC (16:52)
--- NOTE | 2023-06-14 16:58 | CM ---
IV/AB, Dilaudid, Zosyn. Clamp NGT trial. Discharge plan of care: for VN, PT/OT when NGT out and medically stable.
[2023-06-14 18:20] LABS: Glucose - Point of Care 133 mg/dl (70-99)
[2023-06-14] MEDS: Parenteral Nutrition, Central 1900 IV (21:18)
[2023-06-14 23:25] VITALS: BP 116/63
[2023-06-15 00:20] LABS: Glucose - Point of Care 118 mg/dl (70-99)
[2023-06-15] MEDS: TORADOL 10 MG IV ×2 (02:27→10:25)
[2023-06-15] MEDS: ZOSYN 50 IV ×4 (04:06→21:09)
--- NOTE | 2023-06-15 07:06 | W.PN.HOSP.TC ---
Today's Communication/Plan
-
diet tpn as per surgery
pain control
monitor and replete electrolytes
Assessment / Plan
Assessment / Plan
Physical Exam
General: Well Developed and No Apparent Distress
HEENT: Normocephalic, Atraumatic, Moist Mucous Membranes.
Respiratory: Clear to Auscultation
Cardiac: Regular Rhythm and S1/S2
GI: Mild distension. Mild tenderness at incision erythema
Musculoskeletal: No Cyanosis and No Edema
Skin: Warm. Dry.
Neuro: Awake, Alert, Oriented, AO x 3 and Nonfocal/Grossly Intact
Psych: Calm
Assessment/Plan
# High grade small bowel obstruction, abdominal pain s/p Laparoscopic converted to open lysis of adhesions/enterolysis, repair of enterotomy by Dr. Beasley on 06/07
# History of RIGHT inguinal hernia repair with SBR in the
# History of open LEFT inguinal hernia repair years later
Failed conservative management
Clean sutures
WBC came down
Afebrile
No tachycardia
Status post empiric prophylactic intravenous Ertapenem due to small enterotomy seen during surgery.
Now on Zosyn as per surgery -- continue to cover possible superficial wound infection, continue to monitor erythema
Not passing gas yet. No BS on exam.
NGT discontinued 06/14 clear liquid diet since advanced to full liquid
started TPN on June 11, 2023, cont as per surgery
c/w supportive care
IV pain medicine for pain and discomfort
IV antiemetics
Continue Protonix for gastrointestinal prophylaxis while NG tube is in place
Surgery input appreciated
Monitor for Refeeding Syndrome and watch electrolytes
# Hypokalemia - IMPROVED
On tube feeds now
Monitor BMP and electrolytes
#Hypophosphatemia - IMPROVED
-Hopefully will continue to correct with TPN
-If it remains low, can add sodium phosphate to the TPN or increase K-Phos
#Lactic acidosis, resolved. � No fever.�
Patient is nontoxic-appearing
#Hypernatremia, resolved.
#Mild Hyponatremia
# Acute kidney injury due to pre-renal etiology. Creatinine down to 0.4
KERRIE was pre-renal.
Monitor for retention
# Elevated liver enzymes.� Resolved. Likely related to dehydration.�
#History of tobacco use
# Underweight.� Consistent with patient's body habitus
Discussed with patient, her and daughter at bedside
I spent a total of 55 minutes with the patient or on the floor. More than 50% of this time involved counseling and coordination of care.
Anticipated Discharge: 24 - 48 hours
Subjective/Interval History
-
Date of Service: June 15, 2023
Tolerating full liquid diet. Denies nausea. Reports pain but manageable with current pain regimen. REports flatus and small bowel movements
Objective Data
-
Labs:
Laboratory Results
06/15/23
06:34
WBC Pending
Hgb Pending
Hct Pending
Plt Count Pending
Sodium Pending
Potassium Pending
Chloride Pending
Carbon Dioxide Pending
BUN Pending
Creatinine Pending
Glucose Pending
Calcium Pending
Vital Signs:
Vital Signs
Temp Pulse Resp BP Pulse Ox
97.6 F 66 18 116/63 99
06/14/23 23:25 06/14/23 23:25 06/14/23 23:25 06/14/23 23:25 06/15/23 00:49
I&O
06/14/23 06/15/23 06/16/23
06:59 06:59 06:59
Intake Total 1038 / 1038 2155
Output Total 150 / 150
Balance 888 / 888 2155
[2023-06-15 07:12] LABS: % Basophils 0.4 % (0-2); % Eosinophils 0.3 % (0-6); % Immature Granulocytes 5.1 % (0-0.5); % Lymphocytes 12.9 % (20.5-51.1); % Monocytes 6.6 % (1.7-9.3); % Neutrophils 74.7 % (42.2-75.2); Absolute Immature Granulocytes 0.5 10^3/uL (0-0.05); Absolute Lymphocytes 1.2 10^3/uL (1.2-3.4); Absolute Monocytes 0.6 10^3/uL (0.1-0.6); Absolute Neutrophils 7.1 10^3/uL (1.4-6.5); Hematocrit 32.9 % (37.0-47.0); Hemoglobin 11.2 g/dL (12.0-16.0); Mean Corpuscular Hgb 30.7 pg (27.0-31.0); Mean Corpuscular Volume 90.1 fL (81.0-99.0); Nucleated Red Blood Cells % 0 %; Platelet Count 380 10^3/uL (130-400); Red Blood Cell Count 3.65 10^6/uL (4.20-5.40); Red Cell Dist. Width 14.1 % (11.5-14.5); White Blood Cell Count 9.5 10^3/uL (4.8-10.8)
[2023-06-15 07:20] LABS: Albumin 2.2 g/dl (3.5-5.0); Blood Urea Nitrogen 16 mg/dl (7-17); Carbon Dioxide 24 mmol/L (22-30); Chloride 104 mmol/L (98-107); Estimated Creatinine Clearance 69 ml/min; Glucose 141 mg/dl (70-99); Magnesium 2.1 mg/dl (1.6-2.3); Phosphorus 4.5 mg/dl (2.5-4.5); Potassium 4.5 mmol/L (3.5-5.1); Sodium 136 mmol/L (135-145); eGFR > 60.00
[2023-06-15 08:05] VITALS: BP 109/59
[2023-06-15] MEDS: PROTONIX IV 40 MG IV (08:39)
[2023-06-15] MEDS: NSS (PRESERVATIVE FREE) 10 ML IV (08:39)
--- NOTE | 2023-06-15 10:50 | W.PN.GS2 ---
Today's Communication / Plan
-
`
Assessment / Plan
-
Assessment: 73F POD#8 s/p ex lap converted to open for JENNIFER/enterolysis and repair of enterotomy (06/07/23) for high grade pSBO
AFVSS
removed NGT today
superficial surgical site infection - cellulitis alone; improving, no open wounds, no drainage, no fluctuance or induration
Plan: full liquid diet + ensure
TPN renewed without changes
Zosyn for Superficial SSI-cellulitis
Lovenox for VTE ppx
Protonix for GIp
Subjective Data
-
Date of Service: June 15, 2023
pt seen and examined
ariadne NGT continuous clamping
some mild distention compared to baseline but feels well
+fl and BMs
no nausea
Objective Data
-
Intake and Output
06/14/23 06/15/23 06/16/23
06:59 06:59 06:59
Intake Total 1038 / 1038 2156 / 2156
Output Total 150 / 150
Balance 888 / 888 2155 / 215
Intake:
IV piggybacks 200 / 200
TPN/PPN 948 / 948 1896 / 1896
Amount instilled into GI Tube ( 90 / 90 60 / 60
Total)
[place] Sump 90 / 90 60 / 60
Output:
Gastrointestinal tube output ( 150 / 150
Total)
[place] Sump 150 / 150
Other:
Number of approximated SMALL 2
amounts of urine
Number of approximated MODERATE 3 4
amounts of urine
Vital Signs
Temp Pulse Resp BP Pulse Ox
97.3 F 66 16 109/59 97
06/15/23 08:05 06/15/23 08:05 06/15/23 08:05 06/15/23 08:05 06/15/23 08:05
Lab Results
06/15/23 06:34
06/15/23 06:34
Calcium 8.0 mg/dl (8.4-10.2) L 06/15/23 06:34
Phosphorus 4.5 mg/dl (2.5-4.5) 06/15/23 06:34
Magnesium 2.1 mg/dl (1.6-2.3) 06/15/23 06:34
Total Bilirubin 0.5 mg/dl (0.2-1.3) 06/09/23 05:27
AST 26 U/L (14-36) 06/09/23 05:27
ALT 15 U/L (0-35) 06/09/23 05:27
Alkaline Phosphatase 75 U/L (38-126) 06/09/23 05:27
Total Protein 4.9 g/dl (6.3-8.2) L 06/09/23 05:27
Albumin 2.2 g/dl (3.5-5.0) L 06/15/23 06:34
Physical Exam
-
NAD AAOx3
ABD: soft, mild distention, nontender
erythema localized to lower midline incision and improving. no fluctuance, no induration, no open wounds or drainage
NGT returned to suction - flushed and no residual or bilious outputs noted
[2023-06-15 12:35] LABS: Glucose - Point of Care 121 mg/dl (70-99)
[2023-06-15 15:40] VITALS: BP 133/60
[2023-06-15] MEDS: LOVENOX 40 MG SC (17:28)
[2023-06-15 18:09] LABS: Glucose - Point of Care 108 mg/dl (70-99)
[2023-06-15] MEDS: Parenteral Nutrition, Central 1900 IV (21:18)
[2023-06-15 23:20] VITALS: BP 112/71
[2023-06-15] MEDS: DILAUDID 0.25 MG IV (23:49)
[2023-06-16 00:18] LABS: Glucose - Point of Care 122 mg/dl (70-99)
[2023-06-16] MEDS: ZOSYN 50 IV ×4 (04:13→21:37)
[2023-06-16 06:12] LABS: Glucose - Point of Care 124 mg/dl (70-99)
[2023-06-16 06:21] LABS: % Basophils 0.3 % (0-2); % Eosinophils 0.3 % (0-6); % Immature Granulocytes 3.7 % (0-0.5); % Lymphocytes 11.1 % (20.5-51.1); % Monocytes 6.6 % (1.7-9.3); Absolute Immature Granulocytes 0.5 10^3/uL (0-0.05); Absolute Lymphocytes 1.4 10^3/uL (1.2-3.4); Absolute Monocytes 0.8 10^3/uL (0.1-0.6); Absolute Neutrophils 9.6 10^3/uL (1.4-6.5); Hematocrit 30.6 % (37.0-47.0); Hemoglobin 10.6 g/dL (12.0-16.0); Mean Corp Hgb Conc. 34.6 g/dL (33.0-37.0); Mean Corpuscular Volume 89.5 fL (81.0-99.0); Mean Platelet Volume 9.6 fL (7.4-10.4); Nucleated Red Blood Cells % 0 %; Platelet Count 426 10^3/uL (130-400); Red Blood Cell Count 3.42 10^6/uL (4.20-5.40); Red Cell Dist. Width 14.1 % (11.5-14.5); White Blood Cell Count 12.3 10^3/uL (4.8-10.8)
[2023-06-16 06:39] LABS: Blood Urea Nitrogen 12 mg/dl (7-17); Calcium 7.8 mg/dl (8.4-10.2); Carbon Dioxide 25 mmol/L (22-30); Chloride 107 mmol/L (98-107); Estimated Creatinine Clearance 69 ml/min; Glucose 130 mg/dl (70-99); Potassium 4.5 mmol/L (3.5-5.1); Sodium 133 mmol/L (135-145); eGFR > 60.00
[2023-06-16 07:21] VITALS: BP 115/64
--- NOTE | 2023-06-16 07:25 | W.PN.HOSP.TC ---
Today's Communication/Plan
-
diet tpn surgical wound care as per surgery
cont abx, follow cultures
pain control
monitor and replete electrolytes
Assessment / Plan
Assessment / Plan
Physical Exam
General: Well Developed and No Apparent Distress
HEENT: Normocephalic, Atraumatic, Moist Mucous Membranes.
Respiratory: Clear to Auscultation
Cardiac: Regular Rhythm and S1/S2
GI: Mild distension. Mild tenderness at incision erythema
Musculoskeletal: No Cyanosis and No Edema
Skin: Warm. Dry.
Neuro: Awake, Alert, Oriented, AO x 3 and Nonfocal/Grossly Intact
Psych: Calm
Assessment/Plan
# High grade small bowel obstruction, abdominal pain s/p Laparoscopic converted to open lysis of adhesions/enterolysis, repair of enterotomy by Dr. Beasley on 06/07
# History of RIGHT inguinal hernia repair with SBR in the
# History of open LEFT inguinal hernia repair years later
Failed conservative management
Clean sutures
WBC came down
Afebrile
No tachycardia
Status post empiric prophylactic intravenous Ertapenem due to small enterotomy seen during surgery.
cont Zosyn as per surgery -- Surgical wound infection s/p debridement 06/16 follow cultures
NGT discontinued 06/14 clear liquid diet since advanced to full liquid
started TPN on June 11, 2023, tolerating diet having bowel movements, last day TPN 06/16 as per surgery
c/w supportive care
IV pain medicine for pain and discomfort
IV antiemetics
Surgery input appreciated
Monitor for Refeeding Syndrome
# Hypokalemia - IMPROVED
On tube feeds now
Monitor BMP and electrolytes
#Hypophosphatemia - IMPROVED
-Last day of TPN as per surgery 06/16
#Lactic acidosis, resolved. � No fever.�
#Hypernatremia, resolved.
#Mild Hyponatremia
# Acute kidney injury due to pre-renal etiology. Creatinine down to 0.4
KERRIE was pre-renal.
Monitor for retention
# Elevated liver enzymes.� Resolved. Likely related to dehydration.�
#History of tobacco use
# Underweight.� Consistent with patient's body habitus
Discussed with patient and her daughter Jing
I spent a total of 55 minutes with the patient or on the floor. More than 50% of this time involved counseling and coordination of care.
Anticipated Discharge: 24 - 48 hours
Subjective/Interval History
-
Date of Service: June 16, 2023
no acute distress. Tolerating diet. Reports feeling well especially following surgical wound debridement earlier in day.
Objective Data
-
Labs:
Laboratory Results
06/16/23
06:09
WBC 12.3 H
Hgb 10.6 L
Hct 30.6 L
Plt Count 426 H
Sodium 133 L
Potassium 4.5
Chloride 107
Carbon Dioxide 25
BUN 12
Creatinine 0.4 L
Glucose 130 H
Calcium 7.8 L
Vital Signs:
Vital Signs
Temp Pulse Resp BP Pulse Ox
98.5 F 68 16 115/64 95
06/16/23 07:21 06/16/23 07:21 06/16/23 07:21 06/16/23 07:21 06/16/23 07:21
I&O
06/15/23 06/16/23 06/17/23
06:59 06:59 06:59
Intake Total 2155 1823 / 1823
Output Total 400 / 400
Balance 2155 1423 / 1423
[2023-06-16] MEDS: PROTONIX IV 40 MG IV (08:12)
[2023-06-16] MEDS: NSS (PRESERVATIVE FREE) 10 ML IV (08:14)
--- NOTE | 2023-06-16 09:44 | W.PN.GS2 ---
Today's Communication / Plan
-
`
Assessment / Plan
-
Assessment: 73F POD#9 s/p ex lap converted to open for JENNIFER/enterolysis and repair of enterotomy (06/07/23) for high grade pSBO
AFVSS
ariadne fulls with GI function
superficial surgical site infection - skin incision opened centrally at bedside 06/16 - purulent bloody fluid. fascia intact
culture sent
Plan: low residue diet + ensure
TPN may stop after this bag
Zosyn for Superficial SSI - cultures obtained today
gauze dressing BID and PRN saturation - change packing and irrigate out again with saline tomorrow AM
Lovenox for VTE ppx
Protonix for GIp
Subjective Data
-
Date of Service: June 16, 2023
pt seen and examined
bloody/purulent drainage noted this AM at incision site
ariadne fulls, +BM/flatus
no nausea
feels well otherwise
Objective Data
-
Intake and Output
06/15/23 06/16/23 06/17/23
06:59 06:59 06:59
Intake Total 2156 / 2156 1823 / 1823
Output Total 400 / 400
Balance 215 / 2156 1423 / 1423
Intake:
Oral fluids 804 / 804
IV piggybacks 200 / 200 150 / 150
TPN/PPN 1895 / 1896 869 / 869
Amount instilled into GI Tube ( 60 / 60
Total)
Trinity Sump 60 / 60
Output:
Urine, Voided 400 / 400
Other:
Number of approximated MODERATE 4 4
amounts of urine
Number of unmeasured liquid
stools
Rectum 1
Vital Signs
Temp Pulse Resp BP Pulse Ox
98.5 F 68 16 115/64 95
06/16/23 07:21 06/16/23 07:21 06/16/23 07:21 06/16/23 07:21 06/16/23 07:21
Lab Results
06/16/23 06:09
06/16/23 06:09
Calcium 7.8 mg/dl (8.4-10.2) L 06/16/23 06:09
Phosphorus 4.5 mg/dl (2.5-4.5) 06/15/23 06:34
Magnesium 2.1 mg/dl (1.6-2.3) 06/15/23 06:34
Total Bilirubin 0.5 mg/dl (0.2-1.3) 06/09/23 05:27
AST 26 U/L (14-36) 06/09/23 05:27
ALT 15 U/L (0-35) 06/09/23 05:27
Alkaline Phosphatase 75 U/L (38-126) 06/09/23 05:27
Total Protein 4.9 g/dl (6.3-8.2) L 06/09/23 05:27
Albumin 2.2 g/dl (3.5-5.0) L 06/15/23 06:34
Physical Exam
-
NAD AAOx3
ABD: softly distended - stable. tenderness localized to incision - erythema worse, bloody purulent drainage noted
[2023-06-16 11:48] LABS: Glucose - Point of Care 142 mg/dl (70-99)
[2023-06-16 15:09] VITALS: BP 88/51
[2023-06-16] MEDS: LOVENOX 40 MG SC (17:30)
[2023-06-16 23:00] VITALS: BP 117/60
[2023-06-17] MEDS: DILAUDID 0.5 MG IV (03:41)
[2023-06-17] MEDS: ZOSYN 50 IV ×4 (03:41→21:04)
[2023-06-17 04:28] LABS: Hematocrit 29.9 % (37.0-47.0); Hemoglobin 10.3 g/dL (12.0-16.0); Mean Corp Hgb Conc. 34.4 g/dL (33.0-37.0); Mean Corpuscular Hgb 30.8 pg (27.0-31.0); Mean Corpuscular Volume 89.5 fL (81.0-99.0); Mean Platelet Volume 9.5 fL (7.4-10.4); Platelet Count 462 10^3/uL (130-400); Red Blood Cell Count 3.34 10^6/uL (4.20-5.40); Red Cell Dist. Width 14.1 % (11.5-14.5); White Blood Cell Count 10.4 10^3/uL (4.8-10.8)
[2023-06-17 05:06] LABS: ALT (SGPT) 47 U/L (0-35); AST (SGOT) 39 U/L (14-36); Albumin 2.2 g/dl (3.5-5.0); Alkaline Phosphatase 116 U/L (38-126); Blood Urea Nitrogen 20 mg/dl (7-17); Carbon Dioxide 26 mmol/L (22-30); Chloride 102 mmol/L (98-107); Estimated Creatinine Clearance 69 ml/min; Glucose 107 mg/dl (70-99); Magnesium 2.1 mg/dl (1.6-2.3); Phosphorus 4.4 mg/dl (2.5-4.5); Potassium 4.7 mmol/L (3.5-5.1); Sodium 134 mmol/L (135-145); Total Bilirubin 0.6 mg/dl (0.2-1.3); Triglycerides 182 mg/dl (10-149); eGFR > 60.00
--- NOTE | 2023-06-17 06:05 | PTCARENOTE ---
PT slept well overnight. Pt awake this am, ambulatory to bathroom. Pt had small loose bm. Pt reports lower abd bloating and dist. Drainage noted on dressing. Dressing removed, area reddened, serous Sangiunous drainage noted. New foam dressing
applied. Pt given Pain medication as ordered. Will continue to monitor.
--- NOTE | 2023-06-17 06:58 | W.PN.HOSP.TC ---
Today's Communication/Plan
-
cont abx
iD eval
follow cultures
surgical wound care as per surgery
PT
Assessment / Plan
Assessment / Plan
Physical Exam
General: Well Developed and No Apparent Distress
HEENT: Normocephalic, Atraumatic, Moist Mucous Membranes.
Respiratory: Clear to Auscultation
Cardiac: Regular Rhythm and S1/S2
GI: Mild distension. Mild tenderness at incision, dressing clean dry intact
Musculoskeletal: No Cyanosis and No Edema
Skin: Warm. Dry.
Neuro: Awake, Alert, Oriented, AO x 3 and Nonfocal/Grossly Intact
Psych: Calm
Assessment/Plan
# High grade small bowel obstruction, abdominal pain s/p Laparoscopic converted to open lysis of adhesions/enterolysis, repair of enterotomy by Dr. Beasley on 06/07
# History of RIGHT inguinal hernia repair with SBR in the
# History of open LEFT inguinal hernia repair years later
Failed conservative management
Clean sutures
WBC came down
Afebrile
No tachycardia
Status post empiric prophylactic intravenous Ertapenem due to small enterotomy seen during surgery.
cont Zosyn as per surgery -- Surgical wound infection s/p debridement 06/16 follow cultures
NGT discontinued 06/14 clear liquid diet since advanced to full liquid
started TPN on June 11, 2023, tolerating diet having bowel movements, last day TPN 06/16 as per surgery
c/w supportive care
IV pain medicine for pain and discomfort
IV antiemetics
Surgery input appreciated
No significant signs refeeding syndrome
ID eval appreciated
# Hypokalemia - resolved
#Hypophosphatemia - resolved
-Last day of TPN as per surgery 06/16
#Lactic acidosis, resolved. � No fever.�
#Hypernatremia, resolved.
#Mild Hyponatremia
# Acute kidney injury due to pre-renal etiology. Creatinine down to 0.4
KERRIE was pre-renal.
Monitor for retention
resolved
mild transamnitis
mild triglyceride elevation
-potential side effect TPN
-monitor for now
#History of tobacco use
# Underweight.� Consistent with patient's body habitus
I spent a total of 54 minutes with the patient or on the floor. More than 50% of this time involved counseling and coordination of care.
Anticipated Discharge: 24 - 48 hours
Subjective/Interval History
-
Date of Service: June 17, 2023
tolerating diet. Overall reports feeling well. Denies new acute issues at this time. Pain controlled with current regimen recently transitioned to oral pain meds.
Objective Data
-
Labs:
Laboratory Results
06/17/23
04:22
WBC 10.4
Hgb 10.3 L
Hct 29.9 L
Plt Count 462 H
Sodium 134 L
Potassium 4.7
Chloride 102
Carbon Dioxide 26
BUN 20 H
Creatinine 0.5 L
Glucose 107 H
Calcium 8.0 L
Total Bilirubin 0.6
AST 39 H
ALT 47 H
Alkaline Phosphatase 116
Vital Signs:
Vital Signs
Temp Pulse Resp BP Pulse Ox
98.0 F 64 20 117/60 98
06/16/23 23:00 06/16/23 23:00 06/16/23 23:00 06/16/23 23:00 06/16/23 23:51
I&O
06/15/23 06/16/23 06/17/23
06:59 06:59 06:59
Intake Total 215 / 2156 1823 / 1823 1100 / 1100
Output Total 400 / 400 450 / 450
Balance 2156 / 2156 1423 / 1423 650 / 650
[2023-06-17] MEDS: NSS (PRESERVATIVE FREE) 10 ML IV (07:37)
[2023-06-17] MEDS: PROTONIX IV 40 MG IV (07:37)
[2023-06-17 07:59] VITALS: BP 95/63
--- NOTE | 2023-06-17 08:57 | W.PN.GS2 ---
Today's Communication / Plan
-
continue local wound care
continue LRD
Assessment / Plan
-
Assessment: 73F POD#10 s/p ex lap converted to open for JENNIFER/enterolysis and repair of enterotomy (06/07/23) for high grade pSBO
AFVSS
Leukocytosis resolved
Tolerating diet with good GI function
TPN discontinued on 06/16
superficial surgical site infection - skin incision opened centrally at bedside 06/16 - purulent bloody fluid. fascia intact
culture sent and pending
Plan: low residue diet + ensure
Zosyn for Superficial SSI - cultures obtained today
gauze dressing BID and PRN saturation - changed packing and irrigated out again with saline today
case management consulted to arrange VNA for patient
miralax daily, hold for loose stools
Lovenox for VTE ppx
Protonix for GIp
Subjective Data
-
Date of Service: June 17, 2023
Patient seen and examined at bedside with Dr. Kinsey. Passed a BM today with flatus. Tolerating diet. Denies n/v. OOB/Ambulating.
Objective Data
-
Intake and Output
06/16/23 06/17/23 06/18/23
06:59 06:59 06:59
Intake Total 1823 / 1823 1100 / 1100
Output Total 400 / 400 450 / 450
Balance 1423 / 1423 650 / 650
Intake:
Oral fluids 804 / 804 1000 / 1000
IV piggybacks 150 / 150 100 / 100
TPN/PPN 869 / 869
Output:
Urine, Voided 400 / 400 450 / 450
Other:
Number of approximated SMALL 2
amounts of urine
Number of approximated MODERATE 4 3
amounts of urine
Number of unmeasured liquid
stools
Rectum 1 1
Vital Signs
Temp Pulse Resp BP Pulse Ox
97.7 F 66 16 95/63 98
06/17/23 07:59 06/17/23 07:59 06/17/23 07:59 06/17/23 07:59 06/17/23 07:59
Lab Results
06/17/23 04:22
06/17/23 04:22
Calcium 8.0 mg/dl (8.4-10.2) L 06/17/23 04:22
Phosphorus 4.4 mg/dl (2.5-4.5) 06/17/23 04:22
Magnesium 2.1 mg/dl (1.6-2.3) 06/17/23 04:22
Total Bilirubin 0.6 mg/dl (0.2-1.3) 06/17/23 04:22
AST 39 U/L (14-36) H 06/17/23 04:22
ALT 47 U/L (0-35) H 06/17/23 04:22
Alkaline Phosphatase 116 U/L (38-126) 06/17/23 04:22
Total Protein 5.0 g/dl (6.3-8.2) L 06/17/23 04:22
Albumin 2.2 g/dl (3.5-5.0) L 06/17/23 04:22
Physical Exam
-
NAD AAOx3
ABD: softly distended - stable. tenderness localized to incision - erythema much improved, base of wound opened yesterday, packing changed. Light SSF on gauze pad.
[2023-06-17] MEDS: MIRALAX PO (10:02)
[2023-06-17] MEDS: ULTRAM 50 MG PO ×2 (10:02→15:56)
--- NOTE | 2023-06-17 10:17 | CM ---
Addendum entered by Kenya Duncan RN 06/17/23 15:52:
IMM signed and placed on chart.
Original Note:
Received CM consult for [facility] homecare. Reviewed the chart notes. Referral sent to [facility] and was accepted through [facility]. CM continues to be available to patient/family and is monitoring medical plan for needs at discharge.
Plan: Discharge to home with [facility] services.
[2023-06-17 14:20] VITALS: BP 99/56; PULSE 68; O2SAT 97
[2023-06-17 15:44] VITALS: BP 110/71
[2023-06-17] MEDS: MIRALAX 17 GRAMS PO (16:02)
--- NOTE | 2023-06-17 16:02 | CON.ID ---
Consultation
-
Date/Time Consultation Requested: 06/17/23 10:39
Date/Time Consultation Performed: 06/17/23 16:02
Requesting Provider: Dr Carrion
Performing Provider: Dr Marin
Reason for Consultation: surgical site wound infection recent debridement on zosyn
Chief Complaint / Past History
Chief Complaint
abdominal pain, constipation, nausea and vomiting
History of Present Illness
Ms Phan is a 73 year old female with history notable for incarcerated inguinal hernia who represented to the er for abdominal pain, nausea, vomiting, constipation, distension x2 days. No fevers chills, chest pain, shortnesss of breath etc.
Found to have high grade SBP and on 06/07 underwent �Laparoscopic converted to open, lysis of adhesions/enterolysis, repair of enterotomy - procedure without immediate complications. Course notable for KERRIE and transaminitis -both resolving. Post
operatively patient maintained on ertapenem x 4 days. Started TPN 06/11 and plans to continue through 06/16. 06/14 given a day of zosyn then stopped. Today there was concern for possible surgical site infection, skin incision opened centrally at
bedside 06/16 - purulent bloody fluid.� fascia intact, culture sent. Currently patient remains afebrile, BP stable, wbc yeterday 12.3 resolved today to 10.4, hgb 10.3, plt 462 and increasing, patient had a left shift when most recently checked 06/16,
cr 0.5, t bili 0.6, ast 39, alt 47, allk pohs 116, no further imaging, wound culture from today few enterococcus, currently on zosyn, ID is consulted for assistance with management.
Past History
Additional Past Medical History:
hyperlipidemia
hernias
Additional Past Surgical History:
Polyps removed
Hernia surgery
Allergy History:
hepatitis B virus vaccine Allergy (Verified 06/04/23 10:29)
Shortness of Breath
Medications Reviewed: Yes
Social History
Tobacco: Smoker
Alcohol: Occasional
Drug: None
Family History
Family History: Not Pertinent
Review of Systems
Review of Systems
General: Negative Fever or Chills
All systems: All other systems were reviewed and were negative
Vital Signs
Temp Pulse Resp BP Pulse Ox
97.9 F 77 18 110/71 94
06/17/23 15:44 06/17/23 15:44 06/17/23 15:44 06/17/23 15:44 06/17/23 15:44
Physical Exam
Physical Exam
Constitutional: No Acute Distress
Cardiovascular: Regular Rate and S1/S2; Negative Murmur or Rub
Pulmonary: Clear and Symmetric; Negative Wheezes, Rales or Rhonchi
Gastrointestinal: Soft, Non Tender, Non Distended and Normal Bowel Sounds
Skin: Warm and Dry; Negative Rash or Jaundice
Wound: Other (surgical site clean, no surrounding erythema, thin cabral fluid on the dressing, no odor, stitches notable in the base of the wound without dehiscence )
Lab / Diagnostic Study Results
06/17/23 04:22
06/17/23 04:22
Abs Immat Gran (auto) 0.5 10^3/uL (0-0.05) H 06/16/23 06:09
Absolute Neuts (auto) 9.6 10^3/uL (1.4-6.5) H 06/16/23 06:09
Absolute Lymphs (auto) 1.4 10^3/uL (1.2-3.4) 06/16/23 06:09
Absolute Monos (auto) 0.8 10^3/uL (0.1-0.6) H 06/16/23 06:09
Absolute Basos (auto) 0.0 10^3/uL (0-0.2) 06/16/23 06:09
Total Counted 100 06/04/23 12:45
Immature Gran % 3.7 % (0-0.5) H 06/16/23 06:09
Neutrophils % 78.0 % (42.2-75.2) H 06/16/23 06:09
Lymphocytes % 11.1 % (20.5-51.1) L 06/16/23 06:09
Monocytes % 6.6 % (1.7-9.3) 06/16/23 06:09
Eosinophils % 0.3 % (0-6) 06/16/23 06:09
Basophils % 0.3 % (0-2) 06/16/23 06:09
Abs Neuts (Manual) 2.0 10^3/uL (1.4-6.5) 06/04/23 12:45
Segmented Neutrophils 19 % (42-75) L 06/04/23 12:45
Band Neutrophils 27 % (0-3) H 06/04/23 12:45
Lymphocytes (Manual) 31 % (20-51) 06/04/23 12:45
Lactic Acid 1.6 mmol/L (0.7-2.0) 06/04/23 16:31
Ur Squamous Epith Cells >30 /LPF (Few) 06/04/23 12:45
Microbiology Results
Micro:
06/16/23 10:05 Wound Culture - Preliminary
Abdomen Enterococcus species
Gram Stain - Preliminary
06/04/23 12:45 Urine Culture - Final
Urine
Assessment / Plan
Surgical Site Infection - Polymicrobial or due to enterococcus
s/p ex lap converted to open for JENNIFER/enterolysis and repair of enterotomy (06/07/23) for high grade SBO
Leukocytosis - resolved
KERRIE - resolved
- if fever then send blood cultures x2
- continue to follow wound cultures
- agree with zosyn, could switch to Augmentin in the AM tentatively for a 7 day course - she is requesting discharge and infection appears relatively mild
- follow clinically
[2023-06-17] MEDS: LOVENOX 40 MG SC (17:21)
[2023-06-17] MEDS: FLUSH (NSS) 1 FLUSH IV (21:06)
[2023-06-17 23:13] VITALS: BP 117/69
[2023-06-18] MEDS: ZOSYN 50 IV ×4 (03:07→22:12)
[2023-06-18 05:27] LABS: Hematocrit 30.4 % (37.0-47.0); Hemoglobin 10.4 g/dL (12.0-16.0); Mean Corp Hgb Conc. 34.2 g/dL (33.0-37.0); Mean Corpuscular Hgb 30.8 pg (27.0-31.0); Mean Corpuscular Volume 89.9 fL (81.0-99.0); Mean Platelet Volume 9.4 fL (7.4-10.4); Platelet Count 523 10^3/uL (130-400); Red Blood Cell Count 3.38 10^6/uL (4.20-5.40); Red Cell Dist. Width 13.9 % (11.5-14.5)
[2023-06-18 06:09] LABS: ALT (SGPT) 50 U/L (0-35); AST (SGOT) 42 U/L (14-36); Albumin 2.6 g/dl (3.5-5.0); Alkaline Phosphatase 131 U/L (38-126); Blood Urea Nitrogen 17 mg/dl (7-17); Calcium 8.1 mg/dl (8.4-10.2); Carbon Dioxide 25 mmol/L (22-30); Chloride 104 mmol/L (98-107); Estimated Creatinine Clearance 69 ml/min; Glucose 111 mg/dl (70-99); Potassium 4.5 mmol/L (3.5-5.1); Sodium 133 mmol/L (135-145); Total Bilirubin 0.8 mg/dl (0.2-1.3); Total Protein 5.5 g/dl (6.3-8.2); Triglycerides 165 mg/dl (10-149); eGFR > 60.00
[2023-06-18 06:52] VITALS: BMI 20.1
[2023-06-18 07:19] VITALS: BP 123/67
--- NOTE | 2023-06-18 07:27 | W.PN.HOSP.TC ---
Today's Communication/Plan
-
cont abx
wound care as per surgery
follow cultures
Assessment / Plan
Assessment / Plan
Physical Exam
General: Well Developed and No Apparent Distress
HEENT: Normocephalic, Atraumatic, Moist Mucous Membranes.
Respiratory: Clear to Auscultation
Cardiac: Regular Rhythm and S1/S2
GI: Mild distension. Mild tenderness at incision, dressing clean dry intact
Musculoskeletal: No Cyanosis and No Edema
Skin: Warm. Dry.
Neuro: Awake, Alert, Oriented, AO x 3 and Nonfocal/Grossly Intact
Psych: Calm
Assessment/Plan
# High grade small bowel obstruction, abdominal pain s/p Laparoscopic converted to open lysis of adhesions/enterolysis, repair of enterotomy by Dr. Beasley on 06/07
# History of RIGHT inguinal hernia repair with SBR in the
# History of open LEFT inguinal hernia repair years later
Failed conservative management
Clean sutures
WBC came down
Afebrile
No tachycardia
Status post empiric prophylactic intravenous Ertapenem due to small enterotomy seen during surgery.
cont Zosyn as per surgery -- Surgical wound infection s/p debridement 06/16 follow cultures
NGT discontinued 06/14 clear liquid diet since advanced to full liquid
started TPN on June 11, 2023, tolerating diet having bowel movements, last day TPN 06/16 as per surgery
c/w supportive care
IV pain medicine for pain and discomfort
IV antiemetics
Surgery input appreciated
ID eval appreciated
# Hypokalemia - resolved
#Hypophosphatemia - resolved
-Last day of TPN as per surgery 06/16
#Lactic acidosis, resolved. � No fever.�
#Hypernatremia, resolved.
#Mild Hyponatremia
# Acute kidney injury due to pre-renal etiology. Creatinine down to 0.4
KERRIE was pre-renal.
Monitor for retention
resolved
mild transaminitis
mild triglyceride elevation resolving
-potential side effect TPN
-monitor for now
#History of tobacco use
# Underweight.� Consistent with patient's body habitus
I spent a total of 54 minutes with the patient or on the floor. More than 50% of this time involved counseling and coordination of care.
Anticipated Discharge: Within 24 hours
Subjective/Interval History
-
Date of Service: June 18, 2023
No acute distress. Overall symptoms improved. Reports feeling well though also reports constipation.
Objective Data
-
Labs:
Laboratory Results
06/18/23
05:21
WBC 10.0
Hgb 10.4 L
Hct 30.4 L
Plt Count 523 H
Sodium 133 L
Potassium 4.5
Chloride 104
Carbon Dioxide 25
BUN 17
Creatinine 0.6
Glucose 111 H
Calcium 8.1 L
Total Bilirubin 0.8
AST 42 H
ALT 50 H
Alkaline Phosphatase 131 H
Vital Signs:
Vital Signs
Temp Pulse Resp BP Pulse Ox
97.9 F 68 18 123/67 96
06/18/23 07:19 06/18/23 07:19 06/18/23 07:19 06/18/23 07:19 06/18/23 07:19
I&O
06/17/23 06/18/23 06/19/23
06:59 06:59 06:59
Intake Total 1100 / 1100 1575 / 1575
Output Total 450 / 450
Balance 650 / 650 1575 / 1575
--- NOTE | 2023-06-18 07:52 | W.PN.GS2 ---
Today's Communication / Plan
-
-- Miralax BID
-- OK for DC from surgical perspective, patient nervous, need home wound care coordinated and abx plan
Assessment / Plan
-
Assessment: 73F POD#11 s/p ex lap converted to open for JENNIFER/enterolysis and repair of enterotomy (06/07/23) for high grade pSBO
AFVSS
Leukocytosis resolved
Tolerating diet, passing flatus and previous BMs, started on Miralax BID
TPN discontinued on 06/16
superficial surgical site infection - skin incision opened centrally at bedside 06/16 - purulent bloody fluid. fascia intact
culture sent and pending
Plan: low residue diet + ensure
Zosyn for Superficial SSI - cultures obtained today
gauze dressing BID and PRN saturation - changed packing and irrigated out again with saline today
case management consulted to arrange VNA for patient
miralax BID, hold for loose stools
Lovenox for VTE ppx
Protonix for GIp
Subjective Data
-
Date of Service: June 18, 2023
No major complaints. Pain well-controlled. Reports passing flatus, but no BM in several days. No nausea or vomiting. No fevers or chills.
Objective Data
-
Intake and Output
06/17/23 06/18/23 06/19/23
06:59 06:59 06:59
Intake Total 1100 / 1100 1575 / 1575
Output Total 450 / 450
Balance 650 / 650 1575 / 1575
Intake:
Oral fluids 1000 / 1000 1440 / 1440
IV fluids (Total) 35 / 35
IV piggybacks 100 / 100 100 / 100
Output:
Urine, Voided 450 / 450
Other:
Number of approximated SMALL 2
amounts of urine
Number of approximated MODERATE 3 3
amounts of urine
Number of unmeasured liquid
stools
Rectum 1
Vital Signs
Temp Pulse Resp BP Pulse Ox
97.9 F 68 18 123/67 96
06/18/23 07:19 06/18/23 07:19 06/18/23 07:19 06/18/23 07:19 06/18/23 07:19
Lab Results
06/18/23 05:21
06/18/23 05:21
Calcium 8.1 mg/dl (8.4-10.2) L 06/18/23 05:21
Phosphorus 4.4 mg/dl (2.5-4.5) 06/17/23 04:22
Magnesium 2.1 mg/dl (1.6-2.3) 06/17/23 04:22
Total Bilirubin 0.8 mg/dl (0.2-1.3) 06/18/23 05:21
AST 42 U/L (14-36) H 06/18/23 05:21
ALT 50 U/L (0-35) H 06/18/23 05:21
Alkaline Phosphatase 131 U/L (38-126) H 06/18/23 05:21
Total Protein 5.5 g/dl (6.3-8.2) L 06/18/23 05:21
Albumin 2.6 g/dl (3.5-5.0) L 06/18/23 05:21
Physical Exam
-
Gen: NAD
Abd: soft, NT, mild distension, non-peritoneal, midline dressing c/d/i
[2023-06-18] MEDS: PROTONIX IV 40 MG IV (09:17)
[2023-06-18] MEDS: NSS (PRESERVATIVE FREE) 10 ML IV (09:17)
[2023-06-18] MEDS: MIRALAX 17 GRAMS PO ×2 (09:18→20:42)
[2023-06-18] MEDS: FLUSH (NSS) 2 FLUSH IV (09:19)
[2023-06-18] MEDS: ULTRAM 50 MG PO (09:25)
--- NOTE | 2023-06-18 14:59 | CM ---
Addendum entered by Dez Tomlinson 06/18/23 15:34:
Called and spoke with daughter, Jing. Updated on discharge status. MD is waiting for evaluation by Infectious Disease before discharging. Uncertain if patient will be discharged on IV/AB or transition to PO. Expressed understanding. Info
also relayed to patient.
Original Note:
Met with patient and reviewed discharge plan of care: Home with [facility] and PT/OT. Expressed understanding and in agreement. Anticipates discharge tomorrow.
[2023-06-18 15:03] VITALS: BP 116/64
--- NOTE | 2023-06-18 17:13 | PTOTSP ---
Pt is now ambulating independently in the hallway without need for any assistive device. PT will sign off.
[2023-06-18] MEDS: LOVENOX 40 MG SC (17:27)
[2023-06-18 22:57] VITALS: BP 110/61
[2023-06-19] MEDS: ZOSYN 50 IV (04:00)
--- NOTE | 2023-06-19 04:32 | DOWNTIME ---
There was a [employer] Client Pest Control Supervisor Downtime on 06/19/2023 from 0111 to 06/19/2023 at 0405. Downtime documentation of patient's care, including medication administrations, has been reconciled in the electronic record per guidelines. Refer to the
patient's paper chart under the miscellaneous tab to see printed paper medication records and downtime forms.
--- NOTE | 2023-06-19 04:43 | DOWNTIME ---
There was a [employer] Client Clinical Dietician Downtime on 06/19/2023 from 0111 to 06/19/2023 at 0405. Downtime documentation of patient's care, including medication administrations, has been reconciled in the electronic record per guidelines. Refer to the
patient's paper chart under the miscellaneous tab to see printed paper medication records and downtime forms.
[2023-06-19 05:35] LABS: Hematocrit 29.1 % (37.0-47.0); Mean Corp Hgb Conc. 34.4 g/dL (33.0-37.0); Mean Corpuscular Hgb 31.3 pg (27.0-31.0); Mean Corpuscular Volume 90.9 fL (81.0-99.0); Mean Platelet Volume 9.4 fL (7.4-10.4); Platelet Count 526 10^3/uL (130-400); Red Cell Dist. Width 13.6 % (11.5-14.5); White Blood Cell Count 8.2 10^3/uL (4.8-10.8)
[2023-06-19 05:53] LABS: ALT (SGPT) 40 U/L (0-35); AST (SGOT) 36 U/L (14-36); Albumin 2.4 g/dl (3.5-5.0); Alkaline Phosphatase 107 U/L (38-126); Blood Urea Nitrogen 13 mg/dl (7-17); Calcium 8.1 mg/dl (8.4-10.2); Carbon Dioxide 26 mmol/L (22-30); Chloride 105 mmol/L (98-107); Estimated Creatinine Clearance 68 ml/min; Glucose 100 mg/dl (70-99); Potassium 4.4 mmol/L (3.5-5.1); Sodium 133 mmol/L (135-145); Total Bilirubin 0.6 mg/dl (0.2-1.3); Total Protein 5.3 g/dl (6.3-8.2); eGFR > 60.00
[2023-06-19 06:21] VITALS: BMI 19.6
--- NOTE | 2023-06-19 07:12 | W.PN.HOSP.TC ---
Addendum entered and electronically signed by Natalio Carrion MD 06/20/23 21:45:
Doubt Peritonitis
Original Note:
Today's Communication/Plan
-
Likely discharge today 3PM home with [facility] wound care nurse
IV abx converted to oral
suppository prn constipation
Assessment / Plan
Assessment / Plan
Physical Exam
General: Well Developed and No Apparent Distress
HEENT: Normocephalic, Atraumatic, Moist Mucous Membranes.
Respiratory: Clear to Auscultation
Cardiac: Regular Rhythm and S1/S2
GI: Mild distension. Mild tenderness at incision, dressing clean dry intact
Musculoskeletal: No Cyanosis and No Edema
Skin: Warm. Dry.
Neuro: Awake, Alert, Oriented, AO x 3 and Nonfocal/Grossly Intact
Psych: Calm
Assessment/Plan
# High grade small bowel obstruction, abdominal pain s/p Laparoscopic converted to open lysis of adhesions/enterolysis, repair of enterotomy by Dr. Beasley on 06/07
# History of RIGHT inguinal hernia repair with SBR in the
# History of open LEFT inguinal hernia repair years later
Failed conservative management
Clean sutures
WBC came down
Afebrile
No tachycardia
Status post empiric prophylactic intravenous Ertapenem due to small enterotomy seen during surgery.
cont Zosyn as per surgery -- Surgical wound infection s/p debridement 06/16 Prelim appreciated Enterococcus durans pansensitive and G- bacilli ID pending
NGT discontinued 06/14 clear liquid diet since advanced to full liquid
started TPN on June 11, 2023, tolerating diet having bowel movements, last day TPN 06/16 as per surgery
c/w supportive care
pain medications converted to oral as per surgery
prn antiemetics, has not required since 06/06
Surgery input appreciated
ID eval appreciated zosyn transitioned to Augmentin 7 days planned
# Hypokalemia - resolved
#Hypophosphatemia - resolved
-Last day of TPN as per surgery 06/16
#Lactic acidosis, resolved. � No fever.�
#Hypernatremia, resolved.
#Mild Hyponatremia
# Acute kidney injury due to pre-renal etiology. Creatinine down to 0.4
KERRIE was pre-renal.
Monitor for retention
resolved
HLD
mild transaminitis resolving
mild triglyceride elevation resolving
-potential side effect TPN
-monitor for now
-resume home statin on discharge
#History of tobacco use
# Underweight.� Consistent with patient's body habitus
discussed with patient and her Srinivas
I spent a total of 54 minutes with the patient or on the floor. More than 50% of this time involved counseling and coordination of care.
Anticipated Discharge: Today
Subjective/Interval History
-
Date of Service: June 19, 2023
Seen and examined at bedside in no acute distress ambulating without issues. Srinivas present during evaluation. Patient reports overall feeling well but continues to endorse constipation thought passing flatus. denies nausea, tolerating
diet well. Discussed potentially trying suppository later in day, giving morning miralax time to work. Patient has endorsed that she prefers to go home regardless of whether or not she has a bowel movement.
Objective Data
-
Labs:
Laboratory Results
06/19/23
05:14
WBC 8.2
Hgb 10.0 L
Hct 29.1 L
Plt Count 526 H
Sodium 133 L
Potassium 4.4
Chloride 105
Carbon Dioxide 26
BUN 13
Creatinine 0.5 L
Glucose 100 H
Calcium 8.1 L
Total Bilirubin 0.6
AST 36
ALT 40 H
Alkaline Phosphatase 107
Vital Signs:
Vital Signs
Temp Pulse Resp BP Pulse Ox
97.8 F 63 16 110/61 99
06/18/23 22:57 06/18/23 22:57 06/18/23 22:57 06/18/23 22:57 06/18/23 22:57
I&O
06/18/23 06/19/23 06/20/23
06:59 06:59 06:59
Intake Total 1575 / 1575 980 / 980
Balance 1575 / 1575 980 / 980
[2023-06-19 07:43] VITALS: BP 130/70
[2023-06-19] MEDS: AUGMENTIN 875 MG/125 MG 1 TABLET PO (08:15)
[2023-06-19] MEDS: PROTONIX 40 MG PO (08:15)
[2023-06-19] MEDS: MIRALAX 17 GRAMS PO (08:16)
[2023-06-19 10:27] LABS: Triglycerides 147 mg/dl (10-149)
--- NOTE | 2023-06-19 12:02 | W.PN.ID1 ---
Date of Service
Date of Service: June 19, 2023
Today's Communication
- switched to Augmentin for a 7 day course 06/15-06/21
- follow up with surgery
Assessment / Plan
Surgical Site Infection - Polymicrobial or due to enterococcus
s/p ex lap converted to open for JENNIFER/enterolysis and repair of enterotomy (06/07/23) for high grade SBO
Leukocytosis - resolved
KERRIE - resolved
- switched to Augmentin for a 7 day course 06/15-06/21
- follow up with surgery
Chief Complaint
-: Other (surgical site infection)
Subjective / Review of Systems
afebrile
bp stable
without leukocytosis
cr stable
rare second gram negative not yet IDd
serous drainage on the dressing
Vital Signs / Physical Exam
Vital Signs
Vital Signs
Temp Pulse Resp BP Pulse Ox
98.4 F 77 17 130/70 98
06/19/23 07:43 06/19/23 07:43 06/19/23 07:43 06/19/23 07:43 06/19/23 07:43
Physical Exam
Constitutional: No Acute Distress
Cardiovascular: Regular Rate and S1/S2; Negative Murmur or Rub
Pulmonary: Clear and Symmetric; Negative Wheezes or Rales
Gastrointestinal: Soft, Non Tender, Non Distended and Normal Bowel Sounds
Skin: Warm and Dry; Negative Rash or Jaundice
Objective Data
Lab Data
Lab Results
06/19/23 05:14
06/19/23 05:14
Estimated Creat Clear 68 ml/min 06/19/23 05:14
Lactic Acid 1.6 mmol/L (0.7-2.0) 06/04/23 16:31
Total Bilirubin 0.6 mg/dl (0.2-1.3) 06/19/23 05:14
AST 36 U/L (14-36) 06/19/23 05:14
ALT 40 U/L (0-35) H 06/19/23 05:14
Alkaline Phosphatase 107 U/L (38-126) 06/19/23 05:14
Most recent labs reviewed.
Micro Results:
06/16/23 10:05 Wound Culture - Preliminary
Abdomen Enterococcus durans
Gram negative bacilli
Gram Stain - Preliminary
06/04/23 12:45 Urine Culture - Final
Urine
--- NOTE | 2023-06-19 12:39 | PN.CDI ---
CDI
- -
CDI:
Physician Documentation Request
Admit Date: 06/04/23 15:22
Dear Doctor Murali,
Please review the following and provide your response in the progress notes.
Clinical Indicators:
Documentation in the medical record includes administration of Ertapenem X 4 days.
ID consult, 06/17
#...high grade SBP and on 06/07 underwent �
#Laparoscopic converted to open, lysis of adhesions/enterolysis, repair of enterotomy - procedure without immediate complications. Course notable for KERRIE and transaminitis -both resolving.
#Post operatively patient maintained on ertapenem x 4 days.
#...06/14 given a day of zosyn then stopped.
#Today there was concern for possible surgical site infection,
#...skin incision opened centrally at bedside 06/16 - purulent bloody fluid.�
#...fascia intact, culture sent.
#...wound culture from today few enterococcus, currently on zosyn,
PN, 06/19
#Status post empiric prophylactic intravenous Ertapenem due to small enterotomy seen during surgery.
#cont Zosyn as per surgery -- Surgical wound infection s/p debridement 06/16 Prelim
Based on the above and your clinical assessment,please clarify in the Progress Notes the diagnosis(es) associated with the prophylactic intravenous medication, Ertapenem....
Peritonitis, likely, suspected, probable
Peritonitis, likely, suspected, probable now resolved
Documentation complete
Other, please specify
Use of terms such as suspected, likely, concern for, or probable (associated with a specific diagnosis that is being evaluated, monitored, or treated as if it exists) are acceptable and can be coded in the inpatient setting, when documented at the
time of discharge.
Thank you,
Belinda Gonsalez RN BSN CCDS
CDI Specialist
please contact via tiger text
Please use your independent medical judgment in providing your response.
--- NOTE | 2023-06-19 14:39 | W.DCSUMMARY ---
Discharge Summary
Discharge Data
Date of Admission: 06/04/23
Date of Discharge: 06/19/23
-
Pending Results: No
Hospital Course
73F HLD, incarcerated inguinal hernia p/w abdominal pain, nausea, vomiting, constipation 2 days duration. She also has associated constipation.� Reported gassy and intermittent Constipation since the colonoscopy in December. She had 2 polyps
removed in December.� Usually her constipation improves with Senokot.� No relief 2 days despite Senokot, prompting ED visit. X-ray with small bowel obstruction.� NG tube was placed for decompression with subsequent relief of symptoms. High grade
small bowel obstruction, failed conservative mgmt, laparoscopy was performed then converted to open lysis of adhesions/enterolysis, repair of enterotomy by Dr. Beasley on 06/07. Empiric prophylactic intravenous Ertapenem was provided due to presence
enterotomy. Patient was later placed on zosyn due to presence surgical wound infection. Surgical wound infection debridement was performed 06/16. Patient was transitioned from zosyn to Augmentin, as per ID recommendation, at time of discharge.
Bowel function return was prolonged, patient required TPN while awaiting return of function. Prolonged NGT placement. Eventually patient improved, ngt was clamped and patient was started on clear liquid diet, tolerated well. Eventually NGT was
discontinued, diet was advanced, and TPN was discontinued. Tolerating diet, on oral antibiotics, medically stabilized, patient was discharged home with home services and outpatient follow up recommendations.
Discharge Plan
-
Patient Disposition: Home with Home Care
Discharge Diagnosis/Procedures: High Grade Small bowel obstruction failed conservative management treated with exploratory laparoscopy converted to open procedure for lysis of adhesions, Surgical Wound Infection, Acute Kidney Injury Resolved
Condition: Good
Diet: Low Residue
Activity: No strenuous activity
Additional Activity: Do not lift more than 15 pounds for the next 4-6 weeks
Driving Restrictions: As prior to admission
Bathing Restrictions: OK to Shower
Wound Care: DR NAVEEN BEASLEY Lightly pack your wound with gauze and cover with gauze/absorbent dressing. Change dressing daily and as needed.
Activity Restrictions/Additional Instructions:
Call your surgeon if you develop worsening abdominal pain, nausea with vomiting or a fever >100.5
If you are straining to have a BM or not having regular BM's take over the counter Miralax daily as needed.
Please follow up with your primary care provider in 1 week of discharge and surgeon in 1-2 weeks of discharge.
For skin/wound infection you've been prescribed Augmentin to continue through 06/21/23 then stop.
Tramadol as needed for severe pain has been prescribed.
Please take medications as prescribed/recommended and follow up with primary care provider and/or other healthcare provider involved in your care for refills and/or further adjustments to your medication regimen as necessary.
Referrals:
Tala Tijerina MD [Family Provider] - in one week
Naveen Beasley MD [Active] - in one to two weeks
Prescriptions:
New
amoxicillin-pot clavulanate 875-125 mg Tablet
1 tab PO Q12 3 Days Qty: 6 0RF
tramadol 50 mg tablet
50 mg PO DAILY PRN (Reason: severe pain) 7 Days Qty: 7 0RF
Continued
sennosides [Senokot] 8.6 mg Tablet
8.6 mg PO DAILY PRN (Reason: constipation)
atorvastatin 20 mg Tablet
20 mg PO QPM
alendronate 70 mg Tablet
70 mg PO DALY@0800
ibuprofen [Motrin IB] 200 mg Tablet
400 mg PO DAILYPRN PRN (Reason: mild pain)
[id number]-Zinc
2 tab PO Q48H
Discontinued
Zkrkagt-S5-Rshxiurpf-Zinc
1 tab PO Q48H
Discharge Orders:
Discharge Patient (As Directed); Ordered 06/19/23
Ordered By: Natalio Carrion
Discharge Date and Time
Discharge Date/Time: 06/19/23 15:32
--- NOTE | 2023-06-19 15:06 | CM ---
Patient has been medically cleared for discharge to home with [facility] half-way services. will transport home.
== END 2023-06-19 15:32 | disposition home health service (06) | DRG 330 ==
LOC: 2 SOUTH 15:22
PROVIDERS: Hospitalist; Radiology Diagnostic Radiology; Registered Nurse; Surgery; ADMITTING PHYSICIAN Internal Medicine; ATTENDING PHYSICIAN Internal Medicine; CONSULT PHYSICIAN Student in an Organized Health Care Education/Training Program; CONSULT PHYSICIAN Surgery; EMERGENCY PHYSICIAN Emergency Medicine; FAMILY PHYSICIAN Family Medicine
PROC: 0D9670Z Drainage of Stomach with Drainage Device, Via Natural or Artificial Opening (ICD-10-PCS; 2023-06-04)
PROC: 0WJG4ZZ Inspection of Peritoneal Cavity, Percutaneous Endoscopic Approach (ICD-10-PCS; 2023-06-07)
PROC: 0DQ80ZZ Repair Small Intestine, Open Approach (ICD-10-PCS; 2023-06-07)
PROC: 0DN80ZZ Release Small Intestine, Open Approach (ICD-10-PCS; 2023-06-07)
PROC: 02HV33Z Insertion of Infusion Device into Superior Vena Cava, Percutaneous Approach (ICD-10-PCS; 2023-06-10)
PROC: 3E0336Z Introduction of Nutritional Substance into Peripheral Vein, Percutaneous Approach (ICD-10-PCS; 2023-06-11)
DX: K56.51 Intestinal adhesions [bands], with partial obstruction (principal); E87.0 Hyperosmolality and hypernatremia; Z68.1 Body mass index [BMI] 19.9 or less, adult; N17.9 Acute kidney failure, unspecified; K91.89 Other postprocedural complications and disorders of digestive system; T81.41XA Infection following a procedure, superficial incisional surgical site, initial encounter; E87.20 Acidosis, unspecified; E87.1 Hypo-osmolality and hyponatremia; K56.7 Ileus, unspecified; E78.00 Pure hypercholesterolemia, unspecified; R63.6 Underweight; K40.90 Unilateral inguinal hernia, without obstruction or gangrene, not specified as recurrent; D72.829 Elevated white blood cell count, unspecified; E86.0 Dehydration; E87.6 Hypokalemia; E83.39 Other disorders of phosphorus metabolism; E87.8 Other disorders of electrolyte and fluid balance, not elsewhere classified; F17.210 Nicotine dependence, cigarettes, uncomplicated; Z88.7 Allergy status to serum and vaccine; Z53.31 Laparoscopic surgical procedure converted to open procedure
CPT/HCPCS: 43752; 71045; 74018; 74022; 74177; 80048; 80053; 81003; 81015; 82040; 82962; 83605; 83735; 84100; 84134; 84478; 85025; 85027; 87070; 87077; 87086; 87186; 87205; 93005; 96361; 96374; 97116; 97162; 97530; 99285; 99406; J1335; Q9967